=== PATIENT | male | born 1970 | race Caucasian/White ===

== ENCOUNTER 2024-07-20 08:48 | Inpatient (IN) | payer OTHER ==
--- NOTE | 2024-07-20 09:44 | ED ---
General Adult HPI - General Chief complaint: Abdominal Pain Stated complaint: Abd pain Time Seen by Provider: 07/20/24 09:03 Source: patient Mode of arrival: ambulatory Limitations: no limitations - History of Present Illness Initial comments: Dictation was produced using [employer] dictation software. please excuse any grammatical, word or spelling errors. Chief Complaint: 53-year-old male presents emergency department left lower quadrant abdominal pain History of Present Illness: Patient is 53-year-old male presents emergency department with left lower quadrant abdominal pain. Patient was seen to the urgent care was told to come to the ER. Patient has been having some left lower quadrant pain without any associated diarrhea, fever chills or night sweats. Was told to come to the ER for concerns of diverticulitis. The ROS documented in this emergency department record has been reviewed and confirmed by me. Those systems with pertinent positive or negative responses have been documented in the HPI. All other systems are other negative and/or noncontributory. - Related Data Previous Rx's Medication Instructions Recorded Docusate [Colace] 100 mg PO BID #30 capsule 03/12/14 Hydrocodone/Acetaminophen [Andale 1 each PO Q4HR PRN #40 tab 03/12/14 7.5-325] Allergies Allergy/AdvReac Type Severity Reaction Status Date / Time No Known Allergies Allergy Verified 07/20/24 09:01 Review of Systems ROS Statement: Those systems with pertinent positive or pertinent negative responses have been documented in the HPI. ROS Other: All systems not noted in ROS Statement are negative. Past Medical History Past Medical History: GERD/Reflux History of Any Multi-Drug Resistant Organisms: None Reported Past Surgical History: Cholecystectomy, Ear Surgery, Hernia Repair Additional Past Surgical History / Comment(s): PILONIDAL CYST EXC. Past Anesthesia/Blood Transfusion Reactions: No Reported Reaction Past Psychological History: No Psychological Hx Reported Smoking Status: Current every day smoker Past Alcohol Use History: Daily Past Drug Use History: Marijuana General Exam - General Exam Comments Initial Comments: PHYSICAL EXAM: General Impression: Alert and oriented x3, not in acute distress HEENT: Normocephalic atraumatic, extra-ocular movements intact, pupils equal and reactive to light bilaterally, mucous membranes moist. Cardiovascular: Heart regular rate and rhythm Chest: Able to complete full sentences, no retractions, no tachypnea Abdomen: abdomen soft, palpatory tenderness to the left lower quadrant non- distended, no organomegaly Musculoskeletal: Pulses present and equal in all extremities, no peripheral edema Motor: no focal deficits noted Neurological: CN II-XII grossly intact, no focal motor or sensory deficits noted Skin: Intact with no visualized rashes Psych: Normal affect and mood Limitations: no limitations Course Vital Signs 07/20/24 07/20/24 08:58 11:33 Temperature 99 F 98.1 F Pulse Rate 100 87 Respiratory 18 20 Rate Blood Pressure 134/92 131/58 O2 Sat by Pulse 99 98 Oximetry Medical Decision Making - Medical Decision Making Was pt. sent in by a medical professional or institution (, PA, CONTACT [employer] FLASHING P[employer]CHER, urgent care, hospital, or fpc...) When possible be specific @ -No Did you speak to anyone other than the patient for history (EMS, parent, family, police, friend...)? What history was obtained from this source @ -No Did you review nursing and triage notes (agree or disagree)? Why? @ -I reviewed and agree with nursing and triage notes Were old charts reviewed (outside hosp., previous admission, EMS record, old EKG, old radiological studies, urgent care reports/EKG's, fpc records)? Report findings @ -No old charts were reviewed Differential Diagnosis (chest pain, altered mental status, abdominal pain women, abdominal pain men, vaginal bleeding, musculoskeletal, weakness, fever, dyspnea, syncope, headache, dizziness, GI bleed, back pain, seizure, CVA, palpatations, mental health)? @ -Differential Abdominal Pain Men: Appendicitis, cholecystitis, diverticulosis, ischemic bowel, pancreatitis, hepatitis, UTI, gastroenteritis, AAA, incarcerated hernia, bowel obstruction, constipation, inflammatory bowel, hepatitis, peptic ulcer disease, splenic infarction, perforated viscus, testicular torsion, this is not meant to be an all-inclusive list EKG interpreted by me (3pts min.). @ -None done X-rays interpreted by me (1pt min.). @ -None done CT interpreted by me (1pt min.). @ -CT shows complicated diverticulitis U/S interpreted by me (1pt. min.). @ -None done What testing was considered but not performed or refused? (CT, X-rays, U/S, labs)? Why? @ -None What meds were considered but not given or refused? Why? @ -None Was smoking cessation discussed for >3mins.? @ -No Were there social determinants of health that impacted care today? How? (Homelessness, low income, unemployed, alcoholism, drug addiction, transportation, low edu. Level, literacy, decrease access to med. care, care home, rehab)? @ -No Was there de-escalation of care discussed even if they declined (Discuss DNR or withdrawal of care, Hospice)? DNR status @ -No What co-morbidities impacted this encounter? (DM, HTN, Smoking, COPD, CAD, Cancer, CVA, ARF, Chemo, Hep., AIDS, mental health diagnosis, sleep apnea, morbid obesity)? @ -None Was patient admitted / discharged? Hospital course, mention meds given and route, prescriptions, significant lab abnormalities, going to OR and other pertinent info. @ -53-year-old male with complicated diverticulitis. CT shows diverticulitis with perforation. Laboratory evaluation is unremarkable. Patient started antib iotics. Case discussed with Dr. Thompson for admission. Did you discuss the management of the patient with other professionals (professionals i.e. , PA, CONTACT [employer]ER, lab, RT, psych nurse, social services director, outpatient clerk, teacher, school resource officer, geriatric case manager)? Give summary @ -No Was critical care preformed (if so, how long)? @ -No Undiagnosed new problem with uncertain prognosis? @ -No Drug Therapy requiring intensive monitoring for toxicity (Heparin, Nitro, Insulin, Cardizem)? @ -No Were any procedures done? @ -No Diagnosis/symptom? Acute, or Chronic, or Acute on Chronic? Uncomplicated (without systemic symptoms) or Complicated (systemic symptoms)? @ -Complicated diverticulitis Side effects of treatment? @ -No Exacerbation, Progression, or Severe Exacerbation? @ -No Poses a threat to life or bodily function? How? (Chest pain, [place], [place], pneumonia, PE, COPD, DKA, ARF, appy, cholecystitis, CVA, Diverticulitis, Homicidal, Suicidal, threat to staff... and all critical care pts) @ -yes - Lab Data Result diagrams: 07/20/24 09:47 07/20/24 09:47 Lab Results 07/20/24 07/20/24 Range/Units 09:47 09:47 WBC 12.66 H (4.50-10.00) 10*3/uL RBC 4.93 (4.40-5.60) 10*6/uL Hgb 16.5 (13.0-17.0) g/dL Hct 45.0 (39.6-50.0) % MCV 91.3 (80.0-97.0) fL MCH 33.5 H (27.0-32.0) pg MCHC 36.7 (32.0-37.0) g/dL Plt Count 229 (140-440) 10*3/uL MPV 9.0 L (9.5-12.2) fL Immature Gran % (Auto) 0.4 % Neutrophils % 82.2 % Lymphocytes % 8.8 % Monocytes % 7.6 % Eosinophils % 0.6 % Basophils % 0.4 % Immature Gran # 0.05 H (0.00-0.04) 10*3/uL Neutrophils # 10.41 H (1.80-7.70) 10*3/uL Lymphocytes # 1.11 (0.90-5.00) 10*3/uL Monocytes # 0.96 (0.20-1.00) 10*3/uL Eosinophils # 0.08 (0.04-0.35) 10*3/uL Basophils # 0.05 (0.00-0.10) 10*3/uL Sodium 135 L (137-145) mmol/L Potassium 3.7 (3.5-5.1) mmol/L Chloride 100 (98-107) mmol/L Carbon Dioxide 26 (22-30) mmol/L Anion Gap 9 mmol/L BUN 15 (9-20) mg/dL Creatinine 0.69 (0.66-1.25) mg/dL Est GFR (CKD-EPI)AfAm >90 (>60 ml/min/1.73 sqM) Est GFR (CKD-EPI)NonAf >90 (>60 ml/min/1.73 sqM) Glucose 140 H (74-99) mg/dL Calcium 9.0 (8.4-10.2) mg/dL Total Bilirubin 1.0 (0.2-1.3) mg/dL AST 16 L (17-59) U/L ALT 20 (4-49) U/L Alkaline Phosphatase 74 (38-126) U/L Total Protein 6.8 (6.3-8.2) g/dL Albumin 4.0 (3.5-5.0) g/dL Lipase 43 (23-300) U/L Disposition Clinical Impression: Diverticulitis Disposition: ADMITTED IP TO THIS HOSP Condition: Fair Referrals: Bing Delatorre MD [Primary Care Provider] - 1-2 days Decision Time: 12:28
[2024-07-20 09:53] LABS: Basophils # (A) 0.05 10*3/uL (0.00-0.10); Basophils % (A) 0.4 %; Eosinophils # (A) 0.08 10*3/uL (0.04-0.35); Eosinophils % (A) 0.6 %; HGB 16.5 g/dL (13.0-17.0); Lymphocytes # (A) 1.11 10*3/uL (0.90-5.00); Lymphocytes % (A) 8.8 %; MCH 33.5 pg (27.0-32.0); MCHC 36.7 g/dL (32.0-37.0); MCV 91.3 fL (80.0-97.0); Monocytes # (A) 0.96 10*3/uL (0.20-1.00); Monocytes % (A) 7.6 %; Neutrophils # (A) 10.41 10*3/uL (1.80-7.70); Neutrophils % (A) 82.2 %; Platelet Count 229 10*3/uL (140-440); RBC 4.93 10*6/uL (4.40-5.60); RDW 11.8 % (11.5-14.5); WBC 12.66 10*3/uL (4.50-10.00)
[2024-07-20 10:04] LABS: ALT 20 U/L (4-49); AST 16 U/L (17-59); African American GFR (CKD) >90 (>60 ml/min/1.73 sqM); Alkaline Phosphatase 74 U/L (38-126); Anion Gap 9 mmol/L; Blood Urea Nitrogen 15 mg/dL (9-20); Carbon Dioxide 26 mmol/L (22-30); Chloride 100 mmol/L (98-107); Glucose 140 mg/dL (74-99); Lipase 43 U/L (23-300); Non-African American GFR(CKD) >90 (>60 ml/min/1.73 sqM); Potassium 3.7 mmol/L (3.5-5.1); Sodium 135 mmol/L (137-145); Total Protein 6.8 g/dL (6.3-8.2)
--- NOTE | 2024-07-20 11:33 | CT ---
EXAMINATION TYPE: CT abdomen pelvis w con DATE OF EXAM: 07/20/2024 10:58 AM COMPARISON: None. CLINICAL INDICATION: Male, 53 years old with history of llq abd pain; LLQ abdominal pain TECHNIQUE: Axial CT abdomen pelvis w con;Sagittal and coronal reformats were created on a separate w orkstation. Contrast used:100 ml mL of Isovue 300 with IV Contrast, (none if empty) Oral contrast used: without Oral Contrast (none if empty) CT DLP: 1611.2 mGycm, Automated exposure control for dose reduction was used. FINDINGS: LOWER CHEST: Unremarkable ABDOMEN LIVER: Liver enlarged at 19.7 cm. There may be mild fatty infiltration. GALLBLADDER AND BILE DUCTS: Gallbladder surgically absent. Portal venous system is patent. PANCREAS: Unremarkable. SPLEEN: Unremarkable. ADRENAL GLANDS: Unremarkable. KIDNEYS AND URETERS: Scattered bilateral renal cysts measuring up to 4.0 cm. There is a 3.3 cm interm ediate density, nonenhancing lesion mid left kidney suggesting a degree filter/compensated cyst. Symm etric uptake and excretion of contrast from both kidneys. PELVIS BLADDER: No evidence for wall thickening or mass given limitations of exam. REPRODUCTIVE: Unremarkable. ABDOMEN & PELVIS STOMACH AND BOWEL: Tiny hiatal hernia. No evidence of bowel obstruction. Generalized colonic divertic ulosis greatest along the proximal distal mid sigmoid colon. There is focal wall thickening with mode rate pericolonic inflammatory fat stranding and tracking edema at the lower descending colon with a s mall 1.1 cm focus of adjacent extraluminal air, axial image 50. No additional free air is identified. PERITONEUM/RETROPERITONEUM: No evidence of any additional pneumoperitoneum or free fluid. VASCULATURE: No evidence of aortic aneurysm. MUSCULOSKELETAL: Bilateral L5 pars defects. Mild degenerative disc disease throughout. LYMPH NODES: No gross evidence for lymphadenopathy. SOFT TISSUE/ABDOMINAL WALL: Unremarkable IMPRESSION: 1. Exam positive for acute diverticulitis along the lower descending colon with moderate inflammatio n. There is a focal microperforation with an extraluminal focus of air just adjacent measuring 1.1 cm . No additional free air is seen. 2. Incidental bilateral L5 pars defects. [facility], Workstation: [email or web address], 07/20/2024 11:30 AM
[2024-07-20] MEDS ORDERED: NALOXONE 0.4 MG/ML 1 ML VIAL IV PRN (12:26)
[2024-07-20] MEDS ORDERED: ACETAMINOPHEN TAB 325 MG TAB PO PRN (12:26)
[2024-07-20] MEDS: PIPERACILLIN-TAZOBACTAM 3.375 GM in SODIUM CHLORIDE 0.9% 100 ML IVPB SCH (12:33)
[2024-07-20] MEDS: SODIUM CHLORIDE 0.9% 1,000 ML IV SCH (12:38)
[2024-07-20] MEDS ORDERED: HYDROmorphone 2 MG/ML 1 ML SYRINGE IVP PRN (16:49)
[2024-07-20] MEDS ORDERED: ONDANSETRON 4 MG/2 ML VIAL IVP PRN (16:50)
--- NOTE | 2024-07-20 16:51 | P.GSHP ---
History of Present Illness H&P Date: 07/20/24 CHIEF COMPLAINT: Abdominal pain HISTORY OF PRESENT ILLNESS: This is a 53-year-old male who presented to the ER with complaints of left lower quadrant abdominal pain for the last 4 days. Patient reports he noticed some swelling on the left side of the abdomen. He had a CT scan abdomen and pelvis completed that reported acute diverticulitis along the lower descending colon with moderate inflammation. There is a focal microperforation with extraluminal focus of air just adjacent measuring 1.1 cm. No additional free air is seen. Patient started on antibiotics. PAST MEDICAL HISTORY: GERD PAST SURGICAL HISTORY: Cholecystectomy, hernia repair, pilonidal cyst excision MEDICATIONS: See below ALLERGIES: See below SOCIAL HISTORY: No illicit drug use. Daily alcohol use. Marijuana use, nicotine dependence REVIEW OF SYSTEMS: CONSTITUTIONAL: Denies fever or chills. HEENT: Denies blurred vision, vision changes, or eye pain. Denies hemoptysis CARDIOVASCULAR: Denies chest pain or pressure. RESPIRATORY: No shortness of breath. GASTROINTESTINAL: See HPI for pertinent findings HEMATOLOGIC: Denies bleeding disorders. GENITOURINARY: Denies any blood in urine or increased urinary frequency. SKIN: Denies pruitis. Denies rash. PHYSICAL EXAM: VITAL SIGNS: Reviewed GENERAL: Well-developed in no acute distress. HEENT: No sclera icterus. Extraocular movements grossly intact. Moist buccal mucosa. Head is atraumatic, normocephalic. No nasal drainage. ABDOMEN: Soft. Nondistended. Mild tenderness palpation left lower quadrant. No rebound or guarding noted. NEUROLOGIC: Alert and oriented. Cranial nerves II through XII grossly intact. LABORATORY DATA: WBC is 12.6 Hgb 16.5 platelets 229 Sodium is 135 potassium 3.7 creatinine 0.69 IMAGING: CT scan abdomen pelvis reports acute diverticulitis along the lower descending colon with moderate inflammation. There is focal microperforation with an external focus of air just adjacent measuring 1.1 cm. No additional free air is seen. ASSESSMENT: 1. Acute diverticulitis along the lower descending colon with microperforation PLAN: - Keep patient n.p.o. - Continue IV antibiotics - Continue IV fluids - Continue pain management - Continue to monitor closely Physician [employer] note has been reviewed by physician. Signing provider agrees with the documented findings, assessment, and plan of care. Past Medical History Past Medical History: GERD/Reflux History of Any Multi-Drug Resistant Organisms: None Reported Past Surgical History: Cholecystectomy, Ear Surgery, Hernia Repair Additional Past Surgical History / Comment(s): PILONIDAL CYST EXC. Past Anesthesia/Blood Transfusion Reactions: No Reported Reaction Past Psychological History: No Psychological Hx Reported Smoking Status: Current every day smoker Past Alcohol Use History: Daily Past Drug Use History: Marijuana Medications and Allergies Home Medications Medication Instructions Recorded Confirmed Type Lisinopril-Hctz 20-25 mg 1 tab PO DAILY 07/20/24 07/20/24 History [Zestoretic -] Allergies Allergy/AdvReac Type Severity Reaction Status Date / Time No Known Allergies Allergy Verified 07/20/24 12:51 Surgical - Exam Vital Signs Temp Pulse Resp BP Pulse Ox 99 F 100 18 134/92 99 07/20/24 08:58 07/20/24 08:58 07/20/24 08:58 07/20/24 08:58 07/20/24 08:58 Results - Labs 07/20/24 09:47 07/20/24 09:47 Abnormal Lab Results - Last 24 Hours (Table) 07/20/24 07/20/24 Range/Units 09:47 09:47 WBC 12.66 H (4.50-10.00) 10*3/uL MCH 33.5 H (27.0-32.0) pg MPV 9.0 L (9.5-12.2) fL Immature Gran # 0.05 H (0.00-0.04) 10*3/uL Neutrophils # 10.41 H (1.80-7.70) 10*3/uL Sodium 135 L (137-145) mmol/L Glucose 140 H (74-99) mg/dL AST 16 L (17-59) U/L Diabetes panel 07/20/24 Range/Units 09:47 Sodium 135 L (137-145) mmol/L Potassium 3.7 (3.5-5.1) mmol/L Chloride 100 (98-107) mmol/L Carbon Dioxide 26 (22-30) mmol/L BUN 15 (9-20) mg/dL Creatinine 0.69 (0.66-1.25) mg/dL Glucose 140 H (74-99) mg/dL Calcium 9.0 (8.4-10.2) mg/dL AST 16 L (17-59) U/L ALT 20 (4-49) U/L Alkaline Phosphatase 74 (38-126) U/L Total Protein 6.8 (6.3-8.2) g/dL Albumin 4.0 (3.5-5.0) g/dL Calcium panel 07/20/24 Range/Units 09:47 Calcium 9.0 (8.4-10.2) mg/dL Albumin 4.0 (3.5-5.0) g/dL Pituitary panel 07/20/24 Range/Units 09:47 Sodium 135 L (137-145) mmol/L Potassium 3.7 (3.5-5.1) mmol/L Chloride 100 (98-107) mmol/L Carbon Dioxide 26 (22-30) mmol/L BUN 15 (9-20) mg/dL Creatinine 0.69 (0.66-1.25) mg/dL Glucose 140 H (74-99) mg/dL Calcium 9.0 (8.4-10.2) mg/dL Adrenal panel 07/20/24 Range/Units 09:47 Sodium 135 L (137-145) mmol/L Potassium 3.7 (3.5-5.1) mmol/L Chloride 100 (98-107) mmol/L Carbon Dioxide 26 (22-30) mmol/L BUN 15 (9-20) mg/dL Creatinine 0.69 (0.66-1.25) mg/dL Glucose 140 H (74-99) mg/dL Calcium 9.0 (8.4-10.2) mg/dL Total Bilirubin 1.0 (0.2-1.3) mg/dL AST 16 L (17-59) U/L ALT 20 (4-49) U/L Alkaline Phosphatase 74 (38-126) U/L Total Protein 6.8 (6.3-8.2) g/dL Albumin 4.0 (3.5-5.0) g/dL
[2024-07-20] MEDS: HEPARIN SODIUM,PORCINE 5,000 UNIT/ML 1 ML VIAL SQ SCH (21:16)
[2024-07-21 04:24] LABS: Basophils # (A) 0.04 10*3/uL (0.00-0.10); Basophils % (A) 0.5 %; Eosinophils # (A) 0.12 10*3/uL (0.04-0.35); Eosinophils % (A) 1.5 %; HCT 43.2 % (39.6-50.0); Lymphocytes # (A) 1.47 10*3/uL (0.90-5.00); Lymphocytes % (A) 18.9 %; MCH 32.6 pg (27.0-32.0); MCHC 34.7 g/dL (32.0-37.0); MCV 93.9 fL (80.0-97.0); Monocytes # (A) 0.93 10*3/uL (0.20-1.00); Monocytes % (A) 11.9 %; Neutrophils # (A) 5.19 10*3/uL (1.80-7.70); Neutrophils % (A) 66.7 %; Platelet Count 246 10*3/uL (140-440); RDW 11.9 % (11.5-14.5); WBC 7.79 10*3/uL (4.50-10.00)
[2024-07-21 04:46] LABS: African American GFR (CKD) >90 (>60 ml/min/1.73 sqM); Anion Gap 11 mmol/L; Blood Urea Nitrogen 16 mg/dL (9-20); Carbon Dioxide 26 mmol/L (22-30); Chloride 99 mmol/L (98-107); Glucose 112 mg/dL (74-99); Non-African American GFR(CKD) >90 (>60 ml/min/1.73 sqM); Potassium 3.7 mmol/L (3.5-5.1); Sodium 136 mmol/L (137-145)
--- NOTE | 2024-07-21 12:30 | P.PN ---
Subjective Progress Note Date: 07/21/24 SURGICAL PROGRESS NOTE CHIEF COMPLAINT: Diverticulitis with microperforation HISTORY OF PRESENT ILLNESS: Patient reports his abdominal pain is improving. He has mild discomfort in the left lower quadrant. He has not required pain medication this morning. Denies any nausea or vomiting. Afebrile. White count has normalized from 12.6-7.79 PHYSICAL EXAM: VITAL SIGNS: Reviewed. GENERAL: Well-developed in no acute distress. ABDOMEN: Soft. Nondistended. Mild tenderness left lower quadrant with p alpation NEUROLOGIC: Alert and oriented. Cranial nerves II through XII grossly intact. ASSESSMENT: 1. Acute diverticulitis along the lower descending colon with microperforation PLAN: - Advance diet to clear liquids. Okay for coffee - Continue pain management - Continue antibiotics - Continue IV fluids - Repeat labs in a.m. -DVT prophylaxis subcu heparin Physician [employer] Helper note has been reviewed by physician. Signing provider agrees with the documented findings, assessment, and plan of care. Objective - Vital Signs Vital signs: Vital Signs Temp 98.1 F 07/21/24 07:32 Pulse 74 07/21/24 07:32 Resp 16 07/21/24 07:32 BP 116/73 07/21/24 07:32 Pulse Ox 96 07/21/24 07:32 FiO2 Intake & Output 07/20/24 07/21/24 07/21/24 18:59 06:59 18:59 Weight 99.79 kg 99.79 kg Other: Voiding Method Toilet # Voids 2 - Labs CBC & Chem 7: 07/21/24 03:48 07/21/24 03:48 Labs: Abnormal Lab Results - Last 24 Hours (Table) 07/21/24 07/21/24 Range/Units 03:48 03:48 MCH 32.6 H (27.0-32.0) pg MPV 9.0 L (9.5-12.2) fL Sodium 136 L (137-145) mmol/L Glucose 112 H (74-99) mg/dL
[2024-07-21] MEDS ORDERED: LORazepam 1 MG TAB PO PRN ×3 (12:31)
[2024-07-21] MEDS ORDERED: LORazepam 0.5 MG TAB PO PRN (12:31)
--- NOTE | 2024-07-21 12:44 | P.CONS ---
History of Present Illness - Reason for Consult Consult date: 07/21/24 - Chief Complaint complicated diverticulitis - History of Present Illness Meek Francisco is a 53-year-old male patient of Dr. Delatorre. Patient has a past medical history of GERD, Cholesystectomy , ear surgery and hernia repair and everyday smoker. Patient reports that symptoms started approximately 2 days ago and included nausea vomiting and sharp abdominal pain. Abdominal CT completed showing positive for acute diverticulitis along the lower descending colon with moderate inflammation. There is a focal microperforation with the exteraluminal focus of air just adjacent measuring 1.1 cm. Lab work completed showing white blood cell 12.66, hemoglobin 16.5, creatinine 0.69, bun 15, lipase 43, alkaline phosphatase 74. Vital signs include temp 98.1, heart 74, respiratory rate 16, blood pressure 116/73 with pulse ox of 96% on room air. At this time patient will be admitted patient started on IV Zosyn. Patient made n.p.o. and surgical services consulted Review of Systems Please refer to HPI otherwise unremarkable Past Medical History Past Medical History: GERD/Reflux, Hypertension History of Any Multi-Drug Resistant Organisms: None Reported Past Surgical History: Cholecystectomy, Ear Surgery, Hernia Repair Additional Past Surgical History / Comment(s): PILONIDAL CYST EXC. Past Anesthesia/Blood Transfusion Reactions: No Reported Reaction Past Psychological History: No Psychological Hx Reported Smoking Status: Current every day smoker Past Alcohol Use History: None Reported Additional Past Alcohol Use History / Comment(s): SMOKES 1 PPD Past Drug Use History: Marijuana Medications and Allergies Home Medications Medication Instructions Recorded Confirmed Type Lisinopril-Hctz 20-25 mg 1 tab PO DAILY 07/20/24 07/20/24 History [Zestoretic -] Allergies Allergy/AdvReac Type Severity Reaction Status Date / Time No Known Allergies Allergy Verified 07/20/24 12:51 Physical Exam Vitals: Vital Signs Temp Pulse Pulse Resp BP BP Pulse Ox 07/21/24 07:32 98.1 F 74 16 116/73 96 07/21/24 00:32 98.1 F 69 16 121/73 98 07/20/24 20:50 98.2 F 81 16 131/85 98 07/20/24 20:16 98.8 F 83 18 128/85 96 07/20/24 19:20 98.1 F 80 18 119/81 99 04/28/25 15:36 78 18 113/83 98 07/20/24 12:43 98.7 F 89 18 120/81 99 Intake and Output 07/20/24 07/21/24 07/21/24 22:59 06:59 14:59 Other: Voiding Method Toilet # Voids 2 Weight 99.79 kg Head normocephalic Neck supple Lungs clear to auscultation bilaterally no wheezing or crackles Heart regular rate and rhythm S1-S2, no rub or gallop Abdomen is soft rounded and tender Extremities no edema Neuro alert and orientated to 3 Results CBC & Chem 7: 07/21/24 03:48 07/21/24 03:48 Labs: Abnormal Lab Results - Last 24 Hours (Table) 07/21/24 07/21/24 Range/Units 03:48 03:48 MCH 32.6 H (27.0-32.0) pg MPV 9.0 L (9.5-12.2) fL Sodium 136 L (137-145) mmol/L Glucose 112 H (74-99) mg/dL Assessment and Plan Assessment: 1. Diverticulitis with microperforation. 2. History of GERD 3. History of essential hypertension 4. History of cholecystectomy 5. Current everyday smoker DVT prophylaxis SCDS, GI prophylaxis Protonix patient started on IV antibiotics surgical consult placed repeat labs ordered Time with Patient: Greater than 30 (Greater than 60% of the total time spent in counseling and coordination of care)
[2024-07-21] MEDS: THIAMINE 100 MG/ML 2 ML VIAL IM STA (14:01)
[2024-07-21] MEDS ORDERED: HYDROmorphone 1 MG/ML 1 ML SYRINGE IVP PRN (20:21)
[2024-07-22 08:26] LABS: Basophils # (A) 0.06 X 10*3/uL (0.00-0.10); Basophils % (A) 0.9 %; Eosinophils # (A) 0.15 X 10*3/uL (0.04-0.35); Eosinophils % (A) 2.3 %; HCT 42.7 % (39.6-50.0); HGB 14.5 g/dL (13.0-17.0); Lymphocytes # (A) 1.64 X 10*3/uL (0.90-5.00); Lymphocytes % (A) 24.8 %; MCH 32.8 pg (27.0-32.0); MCV 96.6 FL (80.0-97.0); Mean Platelet Volume 9.3 FL (9.5-12.2); Monocytes # (A) 0.73 X 10*3/uL (0.20-1.00); NRBC Per 100 WBC 0 X 10*3/uL (0.00-0.01); Neutrophils % (A) 60.4 %; Platelet Count 274 X 10*3/uL (140-440); RBC 4.42 X 10*6/uL (4.40-5.60); RDW 11.8 % (11.5-14.5); WBC 6.62 X 10*3/uL (4.50-10.00)
[2024-07-22 08:31] VITALS: BP 144/83; PULSE 61; RESP 17; TEMP 98.4
--- NOTE | 2024-07-22 08:46 | P.CONS ---
History of Present Illness - Reason for Consult Consult date: 07/21/24 Acute diverticulitis With perforation Requesting physician: Deondre Suarez - Chief Complaint Abdominal pain x few days - History of Present Illness Patient is a 53-year-old male with a past medical history significant for reflux hypertension presenting to the hospital for evaluation of abdominal pain patient symptom apparently has been going on for the last few days got worse earlier presentation to the hospital with the patient was initially seen in the urgent care subsequent advised to go to the hospital patient was complaining of pain to be sharp moderate to severe intensity without any radiation with associated nausea but no vomiting did have some constipation and the patient did have a fever on presentation to the hospital patient did have low-grade fever of 99 F patient was not tachycardic hypotensive or hypoxic he did have white count of 12.66 creatinine 0.69 patient did have abdominal pelvis CT acute diverticulitis with moderate inflammation with focal microperforation within extraluminal focus of air just adjacent mildly 1.1 cm did not mention any developing abscess patient has been started on Zosyn infectious disease was consulted today for further management of antibiotic therapy Review of Systems Positive point and negatives has been mentioned in the HPI, complete review of systems was performed and all other systems are negative Past Medical History Past Medical History: GERD/Reflux, Hypertension History of Any Multi-Drug Resistant Organisms: None Reported Past Surgical History: Cholecystectomy, Ear Surgery, Hernia Repair Additional Past Surgical History / Comment(s): PILONIDAL CYST EXC. Past Anesthesia/Blood Transfusion Reactions: No Reported Reaction Past Psychological History: No Psychological Hx Reported Smoking Status: Current every day smoker Past Alcohol Use History: None Reported Additional Past Alcohol Use History / Comment(s): SMOKES 1 PPD Past Drug Use History: Marijuana Medications and Allergies Home Medications Medication Instructions Recorded Confirmed Type Lisinopril-Hctz 20-25 mg 1 tab PO DAILY 07/20/24 07/20/24 History [Zestoretic 20-25] Allergies Allergy/AdvReac Type Severity Reaction Status Date / Time No Known Allergies Allergy Verified 07/20/24 12:51 Physical Exam Vitals: Vital Signs Temp Pulse Pulse Resp BP BP Pulse Ox 07/21/24 07:32 98.1 F 74 16 116/73 96 07/21/24 00:32 98.1 F 69 16 121/73 98 07/20/24 20:50 98.2 F 81 16 131/85 98 07/20/24 20:16 98.8 F 83 18 128/85 96 07/20/24 19:20 98.1 F 80 18 119/81 99 07/20/24 15:36 78 18 113/83 98 Intake and Output 07/20/24 07/21/24 07/21/24 22:59 06:59 14:59 Other: Voiding Method Toilet # Voids 2 Weight 99.79 kg GENERAL DESCRIPTION: Middle-age male up in the chair, no distress. No tachypnea or accessory muscle of respiration use. HEENT: Shows Pallor , no scleral icterus. Oral mucous membrane is dry. NECK: Trachea central, no thyromegaly. LUNGS: Unlabored breathing. Clear to auscultation anteriorly. No wheeze or crackle. HEART: S1, S2, regular rate and rhythm. No loud murmur ABDOMEN: Soft, no tenderness , EXTREMITIES: No edema of feet. SKIN: No rash, no masses palpable. NEUROLOGICAL: The patient is awake, alert, oriented x3, mood and affect normal. Results CBC & Chem 7: 07/22/24 03:16 07/21/24 03:48 Labs: Abnormal Lab Results - Last 24 Hours (Table) 07/21/24 07/21/24 Range/Units 03:48 03:48 MCH 32.6 H (27.0-32.0) pg MPV 9.0 L (9.5-12.2) fL Sodium 136 L (137-145) mmol/L Glucose 112 H (74-99) mg/dL Assessment and Plan (1) Diverticulitis of colon with perforation Current Visit: Yes Status: Acute Code(s): K57.20 - DVTRCLI OF LG INT W PERFORATION AND ABSCESS W/O BLEEDING SNOMED Code(s): 71679303 (2) Leukocytosis Current Visit: Yes Status: Acute Code(s): D72.829 - ELEVATED WHITE BLOOD CELL COUNT, UNSPECIFIED SNOMED Code(s): 391652171 Plan: 1patient presenting to the hospital with abdominal pain. Patient has been diagnosed with acute diverticulitis with microperforation but did not mention any abscess likely pathogen need to cover will be enteric gram-negative both aer obes and anaerobes. 2patient with leukocytosis more likely due to diverticulitis with perforation. 3patient advised Zosyn 3.375 g every 8 hours along with bowel rest for another 24 to 48 hours before transitioning him to oral antibiotics as the patient has been insisting on going home today We will follow on clinical condition and cultures to further adjust medication if needed Thank you for this consultation we will follow the patient along with you Dictation was produced using [employer] dictation software. please excuse any grammatical, word or spelling errors. Time with Patient: Greater than 30
[2024-07-22 09:10] LABS: ALT 17 U/L (10-49); AST 14 U/L (14-35); Albumin 3.4 g/dL (3.8-4.9); Albumin/Globulin Ratio 1.42 Ratio (1.60-3.17); Alkaline Phosphatase 57 U/L (41-126); BUN/Creat Ratio 17.56 Ratio (12.00-20.00); Blood Urea Nitrogen 15.8 mg/dL (9.0-27.0); Calcium 8.6 mg/dL (8.7-10.3); Carbon Dioxide 22.4 mmol/L (21.6-31.8); Chloride 106 mmol/L (96-109); Globulin 2.4 g/dL (1.6-3.3); Glucose 113 mg/dL (70-110); Potassium 4.2 mmol/L (3.5-5.5); Sodium 141 mmol/L (135-145); Total Bilirubin 0.3 mg/dL (0.3-1.2); Total Protein 5.8 g/dL (6.2-8.2)
[2024-07-22] MEDS: THIAMINE 100 MG TAB PO SCH (10:23)
[2024-07-22] MEDS: LISINOPRIL-HCTZ 20-25 MG 1 EACH TAB PO SCH (10:23)
[2024-07-22] MEDS: MULTIVITAMINS, THERA 1 EACH TAB PO SCH (10:23)
--- NOTE | 2024-07-22 10:44 | P.DS ---
Providers Date of admission: 07/20/24 12:27 Expected date of discharge: 07/22/24 Attending physician: Man Thompson Consults: 07/20/24 16:51 Consult Physician Routine Consulting Provider: Deondre Suarez Consult Reason/Comments: medical management Do you want consulting provider notified?: Yes 07/21/24 13:45 Consult Physician Routine Consulting Provider: Dayan Slater Consult Reason/Comments: diverticulitis with perf Do you want consulting provider notified?: Yes Primary care physician: Bing Delatorre Hospital Course: Discharge diagnosis 1. Acute diverticulitis along the lower descending colon with microperforation Hospital course This is a 53-year-old male who presented with complaints of left lower quadrant abdominal pain. He had a CT scan abdomen and pelvis completed that reported acute diverticulitis along the lower descending colon with moderate inflammation. There is a focal microperforation with extraluminal focus of air just adjacent measuring 1.1 cm. No additional free air is seen. Patient was started on antibiotics. His white count has normalized. His pain is improved. He is tolerating liquid diet. He is afebrile. Patient has been up and ambulating. He is stable for discharge. Please refer to chart for any further details. Physician Jackscrew Man note has been reviewed by physician. Signing provider agrees with the documented findings, assessment, and plan of care. Patient Condition at Discharge: Stable Plan - Discharge Summary Discharge Rx Participant: No New Discharge Prescriptions: New Ibuprofen [Motrin] 600 mg PO Q8HR PRN #30 tab PRN Reason: Pain metroNIDAZOLE [Flagyl] 500 mg PO TID 10 Days #30 tab Levofloxacin [Levaquin] 500 mg PO DAILY 10 Days #10 tab Acetaminophen Tab [Tylenol Tab] 650 mg PO Q4H PRN #30 tablet PRN Reason: Pain Continue Lisinopril-Hctz 20-25 mg [Zestoretic 20-25] 1 tab PO DAILY Discharge Medication List Lisinopril-Hctz 20-25 mg [Zestoretic 20-25] 1 tab PO DAILY 07/20/24 [History] Acetaminophen Tab [Tylenol Tab] 650 mg PO Q4H PRN #30 tablet 07/22/24 [Rx] Ibuprofen [Motrin] 600 mg PO Q8HR PRN #30 tab 07/22/24 [Rx] Levofloxacin [Levaquin] 500 mg PO DAILY 10 Days #10 tab 07/22/24 [Rx] metroNIDAZOLE [Flagyl] 500 mg PO TID 10 Days #30 tab 07/22/24 [Rx] Follow up Appointment(s)/Referral(s): Bing Delatorre MD [Primary Care Provider] - 1-2 days Man Thompson MD [STAFF PHYSICIAN] - 2 Weeks Activity/Diet/Wound Care/Special Instructions: Continue a full liquid diet over the next couple of days and advance diet as tolerated Discharge Disposition: HOME SELF-CARE
--- NOTE | 2024-07-22 11:56 | P.PN ---
Subjective Progress Note Date: 07/22/24 Meek Franicsco is a 53-year-old male patient of Dr. Delatorre. Patient has a past medical history of GERD, Cholesystectomy , ear surgery and hernia repair and everyday smoker. Patient reports that symptoms started approximately 2 days ago and included nausea vomiting and sharp abdominal pain. Abdominal CT completed showing positive for acute diverticulitis along the lower descending colon with moderate inflammation. There is a focal microperforation with the exteraluminal focus of air just adjacent measuring 1.1 cm. Lab work completed showing white blood cell 12.66, hemoglobin 16.5, creatinine 0.69, bun 15, lipase 43, alkaline phosphatase 74. Vital signs include temp 98.1, heart 74, respiratory rate 16, blood pressure 116/73 with pulse ox of 96% on room air. At this time patient will be admitted patient started on IV Zosyn. Patient made n.p.o. and surgical services consulted On 08/21/2024 patient was seen and examined on the medical floor he is alert and oriented x 3 in no apparent distress he denies any complaints at this time there is no fever or chills no headache or dizziness no chest pain no shortness of breath no cough no nausea or vomiting no abdominal pain no diarrhea no urinary symptoms. White blood count is down to 6.62 patient is insisting on going home today he was evaluated by infectious disease and recommendation is for 10 days of oral Levaquin and Flagyl patient will be discharged to home today follow-up with primary care physician within 1 week follow-up with general surgery in 1 to 2 weeks Objective - Vital Signs Vital signs: Vital Signs Temp 98.4 F 07/22/24 07:13 Pulse 61 07/22/24 07:13 Resp 17 07/22/24 07:13 BP 144/83 07/22/24 07:13 Pulse Ox 99 07/22/24 07:13 FiO2 Intake & Output 07/21/24 07/22/24 07/22/24 18:59 06:59 18:59 Intake Total 180 Balance 180 Intake: Oral 180 Other: Voiding Method Toilet # Voids 3 3 - Exam In general patient is alert and oriented x 3 in no distress HEENT head normocephalic and atraumatic Neck is supple no JVD no goiter no lymphadenopathy no carotid bruit Chest examination is clear to auscultation no crackles no wheezing Cardiac exam reveals regular heart sounds S1 and S2 no gallops no murmurs Abdomen is soft nontender no organomegaly with normal bowel sounds Extremity exam reveals no edema no cyanosis or clubbing Neurological examination reveals no gross focal deficits - Labs CBC & Chem 7: 07/22/24 03:16 07/22/24 03:16 Labs: Abnormal Lab Results - Last 24 Hours (Table) 07/22/24 07/22/24 Range/Units 03:16 03:16 MCH 32.8 H (27.0-32.0) pg MPV 9.3 L (9.5-12.2) FL Anion Gap 12.60 H (4.00-12.00) mmol/L Glucose 113 H (70-110) mg/dL Calcium 8.6 L (8.7-10.3) mg/dL Total Protein 5.8 L (6.2-8.2) g/dL Albumin 3.4 L (3.8-4.9) g/dL Albumin/Globulin Ratio 1.42 L (1.60-3.17) Ratio Assessment and Plan Assessment: 1. Diverticulitis with microperforation. 2. History of GERD 3. History of essential hypertension 4. History of cholecystectomy 5. Current everyday smoker DVT prophylaxis SCDS, GI prophylaxis Protonix patient started on IV antibiotics surgical consult placed repeat labs ordered
--- NOTE | 2024-07-22 16:43 | P.PN ---
Subjective Progress Note Date: 07/22/24 Principal diagnosis: Reason for follow-up is acute diverticulitis with microperforation Patient is a 53-year-old male with a past medical history significant for reflux hypertension presenting to the hospital for evaluation of abdominal pain patient be diagnosed with a acute diverticulitis with microperforation prompting this consultation. On today's evaluation that is 07/22/2024,the patient remains to be afebrile, patient is on room air not requiring supplemental oxygen and denies any shortness of breath no chest pain or cough.Patient denies having any nausea or vomiting, did have resolution of his abdominal pain and wants to go home patient has already been discharged by the surgical team this morning and they have sent a prescription for oral Levaquin and Flagyl. Patient white count 6.62, creatinine 0.9 Objective - Vital Signs Vital signs: Vital Signs Temp 98.4 F 07/22/24 07:13 Pulse 61 07/22/24 08:00 Resp 17 07/22/24 08:00 BP 144/83 07/22/24 07:13 Pulse Ox 99 07/22/24 07:13 FiO2 Intake & Output 07/21/24 07/22/24 07/22/24 18:59 06:59 18:59 Intake Total 180 Balance 180 Intake: Oral 180 Other: Voiding Method Toilet Toilet # Voids 3 3 - Exam GENERAL DESCRIPTION: Middle-age male up in the chair in no distress RESPIRATORY SYSTEM: Unlabored breathing , decreased breath sounds at bases HEART: S1 S2 regular rate and rhythm , ABDOMEN: Soft , no tenderness EXTREMITIES: No edema feet - Labs CBC & Chem 7: 07/22/24 03:16 07/22/24 03:16 Labs: Abnormal Lab Results - Last 24 Hours (Table) 07/22/24 07/22/24 Range/Units 03:16 03:16 MCH 32.8 H (27.0-32.0) pg MPV 9.3 L (9.5-12.2) FL Anion Gap 12.60 H (4.00-12.00) mmol/L Glucose 113 H (70-110) mg/dL Calcium 8.6 L (8.7-10.3) mg/dL Total Protein 5.8 L (6.2-8.2) g/dL Albumin 3.4 L (3.8-4.9) g/dL Albumin/Globulin Ratio 1.42 L (1.60-3.17) Ratio Assessment and Plan (1) Diverticulitis of colon with perforation Status: Acute Code(s): K57.20 - DVTRCLI OF LG INT W PERFORATION AND ABSCESS W/O BLEEDING SNOMED Code(s): 40779138 (2) Leukocytosis Status: Acute Code(s): D72.829 - ELEVATED WHITE BLOOD CELL COUNT, UNSPECIFIED SNOMED Code(s): 751027289 Plan: 1patient presenting to the hospital with abdominal pain. Patient has been diagnosed with acute diverticulitis with microperforation but did not mention any abscess likely pathogen need to cover will be enteric gram-negative both aerobes and anaerobes. 2patient with leukocytosis more likely due to diverticulitis with perforation. 3patient has been advised to stay in the hospital for another 24 hours for IV antibiotic therapy patient refused surgical team has already discharge the patient on oral Levaquin and Flagyl patient has been advised soft diet and if any worsening abdominal pain nausea vomiting not to take it easy and come back to the hospital right away Dictation was produced using [employer] dictation software. please excuse any grammatical, word or spelling errors. Time with Patient: Less than 30
== END 2024-07-22 12:56 | disposition home or self-care (01) | DRG 392 ==
LOC: EC 08:48 → 4SSUR 12:27
PROVIDERS: ADMIT Surgery; ATTEND Surgery
DX: K57.20 Diverticulitis of large intestine with perforation and abscess without bleeding (principal); F17.210 Nicotine dependence, cigarettes, uncomplicated; I10 Essential (primary) hypertension; Z79.899 Other long term (current) drug therapy
CPT/HCPCS: 36415; 74177; 80048; 80053; 83690; 85025; 96365; 96366; 99285

== ENCOUNTER 2024-08-07 09:58 | Emergency (ER) | payer OTHER ==
[2024-08-07 10:14] VITALS: TEMP 98.3
--- NOTE | 2024-08-07 10:35 | ED ---
General Adult HPI - General Chief complaint: Dizziness Stated complaint: dizzy Time Seen by Provider: 08/07/24 10:15 Source: patient, RN notes reviewed Mode of arrival: ambulatory Limitations: no limitations - History of Present Illness Initial comments: 53-year-old male presents to the emergency department for lightheadedness. Patient states that he has had episodes over the past 3 days. He notes that today he had an episode lasting around 30 minutes. He states that during this time he felt lightheaded but he did not have to sit down. He does report that he recently had diverticulitis and just finished his antibiotics. He states that the pain has resolved. He is not having any changes in his bowel movements. He does note that he started advancing his diet. He denies any fever, chills, nausea, vomiting. Denies any chest pain, shortness of breath. - Related Data Home Medications Medication Instructions Recorded Confirmed Lisinopril-Hctz 20-25 mg 1 tab PO DAILY 07/20/24 07/20/24 [Zestoretic 20-25] Previous Rx's Medication Instructions Recorded Acetaminophen Tab [Tylenol Tab] 650 mg PO Q4H PRN #30 tablet 07/22/24 Ibuprofen [Motrin] 600 mg PO Q8HR PRN #30 tab 07/22/24 Levofloxacin [Levaquin] 500 mg PO DAILY 10 Days #10 tab 07/22/24 metroNIDAZOLE [Flagyl] 500 mg PO TID 10 Days #30 tab 07/22/24 Allergies Allergy/AdvReac Type Severity Reaction Status Date / Time No Known Allergies Allergy Verified 08/07/24 10:14 Review of Systems ROS Statement: Those systems with pertinent positive or pertinent negative responses have been documented in the HPI. ROS Other: All systems not noted in ROS Statement are negative. Past Medical History Past Medical History: GERD/Reflux, Hypertension History of Any Multi-Drug Resistant Organisms: None Reported Past Surgical History: Cholecystectomy, Ear Surgery, Hernia Repair Additional Past Surgical History / Comment(s): PILONIDAL CYST EXC. Past Anesthesia/Blood Transfusion Reactions: No Reported Reaction Past Psychological History: No Psychological Hx Reported Smoking Status: Current every day smoker Past Alcohol Use History: None Reported Past Drug Use History: Marijuana General Exam Limitations: no limitations General appearance: alert, in no apparent distress Head exam: Present: atraumatic, normocephalic, normal inspection Eye exam: Present: normal appearance, PERRL, EOMI. Absent: scleral icterus, conjunctival injection, periorbital swelling ENT exam: Present: normal exam, mucous membranes moist Respiratory exam: Present: wheezes. Absent: respiratory distress, rales, rhonchi, stridor Cardiovascular Exam: Present: regular rate, normal rhythm, normal heart sounds. Absent: systolic murmur, diastolic murmur, rubs, gallop, clicks GI/Abdominal exam: Present: soft, normal bowel sounds. Absent: distended, tenderness, guarding, rebound, rigid Extremities exam: Present: normal inspection, full ROM, normal capillary refill. Absent: tenderness, pedal edema, joint swelling, calf tenderness Neurological exam: Present: alert, oriented X3 Psychiatric exam: Present: normal affect, normal mood Skin exam: Present: warm, dry, intact, normal color. Absent: rash Course Vital Signs 08/07/24 08/07/24 08/07/24 10:11 11:04 11:05 Temperature 98.3 F Pulse Rate 87 Pulse Rate [ 76 73 Pulse Oximetery ] Respiratory 17 16 16 Rate Blood Pressure 123/77 Blood Pressure 122/80 [Left Arm Sitting] Blood Pressure [Left Arm Standing] Blood Pressure 106/72 [Left Arm Supine] O2 Sat by Pulse 98 98 97 Oximetry 08/07/24 08/07/24 11:06 12:09 Temperature Pulse Rate Pulse Rate [ 72 Pulse Oximetery ] Respiratory 18 16 Rate Blood Pressure Blood Pressure [Left Arm Sitting] Blood Pressure 123/82 [Left Arm Standing] Blood Pressure [Left Arm Supine] O2 Sat by Pulse 97 Oximetry Medical Decision Making - Medical Decision Making Was pt. sent in by a medical professional or institution (, PA, MANUFACTURING BAKER, urgent care, hospital, or fpc...) When possible be specific @ -No Did you speak to anyone other than the patient for history (EMS, parent, family, police, friend...)? What history was obtained from this source @ -No Did you review nursing and triage notes (agree or disagree)? Why? @ -I reviewed and agree with nursing and triage notes Were old charts reviewed (outside hosp., previous admission, EMS record, old EKG, old radiological studies, urgent care reports/EKG's, fpc records)? Report findings @ -No old charts were reviewed Differential Diagnosis (chest pain, altered mental status, abdominal pain women, abdominal pain men, vaginal bleeding, weakness, fever, dyspnea, syncope, h eadache, dizziness, GI bleed, back pain, seizure, CVA, palpatations, mental health, musculoskeletal)? @ -Differential Dizziness: Benign paroxysmal positional Vertigo, Meniere's disease, otitis media, acoustic neuroma, vertebrobasilar insufficiency, cerebellar stroke, encephalitis, hypovolemic, arrhythmia, coronary artery syndrome, anemia, this is not meant to be an all-inclusive list EKG interpreted by me (3pts min.). @ -EKG@2019 shows sinus rhythm rate 67, MI 159, QRS 94, [id number] X-rays interpreted by me (1pt min.). @ -None done CT interpreted by me (1pt min.). @ -None done U/S interpreted by me (1pt. min.). @ -None done What testing was considered but not performed or refused? (CT, X-rays, U/S, labs)? Why? @ -None What meds were considered but not given or refused? Why? @ -None Did you discuss the management of the patient with other professionals (professionals i.e. , PA, MANUFACTURING BAKER, lab, RT, psych nurse, social service liaison, water engineer, teacher, correction officer city or county jail, shoe parts caser)? Give summary @ -No Was smoking cessation discussed for >3mins.? @ -No Was critical care preformed (if so, how long)? @ -No Were there social determinants of health that impacted care today? How? (Homelessness, low income, unemployed, alcoholism, drug addiction, transportation, low edu. Level, literacy, decrease access to med. care, correction, rehab)? @ -No Was there de-escalation of care discussed even if they declined (Discuss DNR or withdrawal of care, Hospice)? DNR status @ -No What co-morbidities impacted this encounter? (DM, HTN, Smoking, COPD, CAD, Cancer, CVA, ARF, Chemo, Hep., AIDS, mental health diagnosis, sleep apnea, morbid obesity)? @ -None Was patient admitted / discharged? Hospital course, mention meds given and route, prescriptions, significant lab abnormalities, going to OR and other pertinent info. @ -Discharge. Patient presented emergency department for evaluation of lightheadedness. Symptoms have resolved at this time. Laboratory studies obtainedRevealing no significant leukocytosis, hemoglobin 8.4; normal coagulation studies; CMP is nonactionable. Patient was provided IV fluids in the emergency department. Orthostatics negative. He is asymptomatic at this time. He will be discharged home. He is understanding agreeable to plan. Patient stable at time of discharge. Case discussed with Dr. Oro. Undiagnosed new problem with uncertain prognosis? @ -No Drug Therapy requiring intensive monitoring for toxicity (Heparin, Nitro, Insulin, Cardizem)? @ -No Were any procedures done? @ -No Diagnosis/symptom? @ -Lightheadedness Acute, or Chronic, or Acute on Chronic? @ -Acute Uncomplicated (without systemic symptoms) or Complicated (systemic symptoms)? @ -Uncomplicated Side effects of treatment? @ -No Exacerbation, Progression, or Severe Exacerbation? @ -No Poses a threat to life or bodily function? How? (Chest pain, [place], NH, pneumonia, PE, COPD, DKA, ARF, appy, cholecystitis, CVA, Diverticulitis, Homicidal, Suicidal, threat to staff... and all critical care pts) @ -No - Lab Data Result diagrams: 08/07/24 10:42 08/07/24 10:42 Lab Results 08/07/24 08/07/24 08/07/24 Range/Units 10:42 10:42 10:42 WBC 7.47 (4.50-10.00) 10*3/uL RBC 4.73 (4.40-5.60) 10*6/uL Hgb 15.4 (13.0-17.0) g/dL Hct 43.9 (39.6-50.0) % MCV 92.8 (80.0-97.0) fL MCH 32.6 H (27.0-32.0) pg MCHC 35.1 (32.0-37.0) g/dL Plt Count 255 (140-440) 10*3/uL MPV 9.1 L (9.5-12.2) fL Immature Gran % (Auto) 0.3 % Neutrophils % 62.5 % Lymphocytes % 26.0 % Monocytes % 8.8 % Eosinophils % 1.7 % Basophils % 0.7 % Immature Gran # 0.02 (0.00-0.04) 10*3/uL Neutrophils # 4.67 (1.80-7.70) 10*3/uL Lymphocytes # 1.94 (0.90-5.00) 10*3/uL Monocytes # 0.66 (0.20-1.00) 10*3/uL Eosinophils # 0.13 (0.04-0.35) 10*3/uL Basophils # 0.05 (0.00-0.10) 10*3/uL PT 10.6 (10.0-12.5) sec INR 0.9 (<1.2) APTT 24.1 (22.0-30.0) sec Sodium 138 (137-145) mmol/L Potassium 3.6 (3.5-5.1) mmol/L Chloride 102 (98-107) mmol/L Carbon Dioxide 28 (22-30) mmol/L Anion Gap 8 mmol/L BUN 13 (9-20) mg/dL Creatinine 0.83 (0.66-1.25) mg/dL Est GFR (CKD-EPI)AfAm >90 (>60 ml/min/1.73 sqM) Est GFR (CKD-EPI)NonAf >90 (>60 ml/min/1.73 sqM) Glucose 97 (74-99) mg/dL Plasma Lactic Acid Michael (0.7-2.0) mmol/L Calcium 9.4 (8.4-10.2) mg/dL Total Bilirubin 0.5 (0.2-1.3) mg/dL AST 22 (17-59) U/L ALT 41 (4-49) U/L Alkaline Phosphatase 64 (38-126) U/L Total Protein 6.2 L (6.3-8.2) g/dL Albumin 3.9 (3.5-5.0) g/dL 08/07/24 Range/Units 10:42 WBC (4.50-10.00) 10*3/uL RBC (4.40-5.60) 10*6/uL Hgb (13.0-17.0) g/dL Hct (39.6-50.0) % MCV (80.0-97.0) fL MCH (27.0-32.0) pg MCHC (32.0-37.0) g/dL Plt Count (140-440) 10*3/uL MPV (9.5-12.2) fL Immature Gran % (Auto) % Neutrophils % % Lymphocytes % % Monocytes % % Eosinophils % % Basophils % % Immature Gran # (0.00-0.04) 10*3/uL Neutrophils # (1.80-7.70) 10*3/uL Lymphocytes # (0.90-5.00) 10*3/uL Monocytes # (0.20-1.00) 10*3/uL Eosinophils # (0.04-0.35) 10*3/uL Basophils # (0.00-0.10) 10*3/uL PT (10.0-12.5) sec INR (<1.2) APTT (22.0-30.0) sec Sodium (137-145) mmol/L Potassium (3.5-5.1) mmol/L Chloride (98-107) mmol/L Carbon Dioxide (22-30) mmol/L Anion Gap mmol/L BUN (9-20) mg/dL Creatinine (0.66-1.25) mg/dL Est GFR (CKD-EPI)AfAm (>60 ml/min/1.73 sqM) Est GFR (CKD-EPI)NonAf (>60 ml/min/1.73 sqM) Glucose (74-99) mg/dL Plasma Lactic Acid Michael 0.7 (0.7-2.0) mmol/L Calcium (8.4-10.2) mg/dL Total Bilirubin (0.2-1.3) mg/dL AST (17-59) U/L ALT (4-49) U/L Alkaline Phosphatase (38-126) U/L Total Protein (6.3-8.2) g/dL Albumin (3.5-5.0) g/dL Disposition Clinical Impression: Episodic lightheadedness Disposition: HOME SELF-CARE Condition: Stable Instructions (If sedation given, give patient instructions): Dizziness (ED) Additional Instructions: Please follow-up with your doctor. Return to the emergency department for new or worsening symptoms as we discussed. Is patient prescribed a controlled substance at d/c from ED?: No Referrals: None,Stated [Primary Care Provider] - 1-2 days
[2024-08-07] MEDS: SODIUM CHLORIDE 0.9% 1,000 ML IV STA (10:43)
[2024-08-07 11:06] VITALS: BP 123/82; PULSE 72
[2024-08-07 11:07] LABS: ALT 41 U/L (4-49); AST 22 U/L (17-59); African American GFR (CKD) >90 (>60 ml/min/1.73 sqM); Albumin 3.9 g/dL (3.5-5.0); Alkaline Phosphatase 64 U/L (38-126); Anion Gap 8 mmol/L; Basophils # (A) 0.05 10*3/uL (0.00-0.10); Basophils % (A) 0.7 %; Blood Urea Nitrogen 13 mg/dL (9-20); Calcium 9.4 mg/dL (8.4-10.2); Carbon Dioxide 28 mmol/L (22-30); Chloride 102 mmol/L (98-107); Eosinophils # (A) 0.13 10*3/uL (0.04-0.35); Eosinophils % (A) 1.7 %; Glucose 97 mg/dL (74-99); HCT 43.9 % (39.6-50.0); HGB 15.4 g/dL (13.0-17.0); Lymphocytes # (A) 1.94 10*3/uL (0.90-5.00); MCH 32.6 pg (27.0-32.0); MCHC 35.1 g/dL (32.0-37.0); MCV 92.8 fL (80.0-97.0); Mean Platelet Volume 9.1 fL (9.5-12.2); Monocytes # (A) 0.66 10*3/uL (0.20-1.00); Monocytes % (A) 8.8 %; Neutrophils # (A) 4.67 10*3/uL (1.80-7.70); Neutrophils % (A) 62.5 %; Non-African American GFR(CKD) >90 (>60 ml/min/1.73 sqM); Platelet Count 255 10*3/uL (140-440); Potassium 3.6 mmol/L (3.5-5.1); RBC 4.73 10*6/uL (4.40-5.60); Sodium 138 mmol/L (137-145); Total Bilirubin 0.5 mg/dL (0.2-1.3); Total Protein 6.2 g/dL (6.3-8.2); WBC 7.47 10*3/uL (4.50-10.00)
[2024-08-07 11:33] LABS: INR 0.9 (<1.2); Partial Thromboplastin Time 24.1 sec (22.0-30.0); Prothrombin Time 10.6 sec (10.0-12.5)
[2024-08-07 12:10] VITALS: RESP 16
== END 2024-08-07 12:10 | disposition home or self-care (01) ==
LOC: EC 09:58
DX: R42 Dizziness and giddiness (principal); F17.200 Nicotine dependence, unspecified, uncomplicated
CPT/HCPCS: 36415; 80053; 83605; 85025; 85610; 85730; 93005; 96360; 99284

== ENCOUNTER 2024-09-28 07:30 | Inpatient (IN) | payer OTHER ==
[~2024-09-28 07:30] MED LIST: HEPARIN SODIUM,PORCINE 5,000 UNIT/ML 1 ML VIAL SQ PRN; LIDOCAINE 1% (10MG/ML) FOR IV START INTRADERMA PRN; fentaNYL (PF) 50 MCG/ML 2 ML AMP IVP PRN; metroNIDAZOLE-NS PMX 500 MG in SALINE 1 100ML.BAG IVPB PRN
[2024-09-28] MEDS: LACTATED RINGERS 1,000 ML IV SCH (10:14)
[2024-09-28] MEDS: IV FLUID CONTINUATION 1,000 ML IV ONE ×2 (10:15→12:13)
[2024-09-28] MEDS: DEXAMETHASONE SOD PHOSPHATE 4 MG/ML 1 ML VIAL IV ONE (10:20)
[2024-09-28] MEDS: ONDANSETRON 4 MG/2 ML VIAL IVP ONE (10:20)
[2024-09-28] MEDS: ACETAMINOPHEN TAB 500 MG TAB PO PRN (10:20)
[2024-09-28 10:23] LABS: INR 1.0 (<1.2); Prothrombin Time 11.2 sec (10.0-12.5)
[2024-09-28 10:30] LABS: Basophils # (A) 0.07 10*3/uL (0.00-0.10); Basophils % (A) 0.9 %; Eosinophils # (A) 0.21 10*3/uL (0.04-0.35); Eosinophils % (A) 2.6 %; HCT 48.2 % (39.6-50.0); HGB 17.2 g/dL (13.0-17.0); Lymphocytes # (A) 2.05 10*3/uL (0.90-5.00); Lymphocytes % (A) 25.0 %; MCH 33.1 pg (27.0-32.0); MCHC 35.7 g/dL (32.0-37.0); MCV 92.7 fL (80.0-97.0); Monocytes # (A) 0.74 10*3/uL (0.20-1.00); Monocytes % (A) 9.0 %; Neutrophils # (A) 5.10 10*3/uL (1.80-7.70); Neutrophils % (A) 62.1 %; Platelet Count 252 10*3/uL (140-440); RBC 5.20 10*6/uL (4.40-5.60); RDW 12.8 % (11.5-14.5); WBC 8.20 10*3/uL (4.50-10.00)
[2024-09-28 10:32] LABS: African American GFR (CKD) >90 (>60 ml/min/1.73 sqM); Anion Gap 11 mmol/L; Blood Urea Nitrogen 14 mg/dL (9-20); Calcium 9.3 mg/dL (8.4-10.2); Carbon Dioxide 24 mmol/L (22-30); Chloride 106 mmol/L (98-107); Glucose 113 mg/dL (74-99); Non-African American GFR(CKD) >90 (>60 ml/min/1.73 sqM); Potassium 4.1 mmol/L (3.5-5.1); Sodium 141 mmol/L (137-145)
[2024-09-28] MEDS: MIDAZOLAM 2 MG/2 ML VIAL IV PRN (10:51)
[2024-09-28] MEDS ORDERED: SUCCINYLCHOLINE CHLORIDE 200 MG/10 ML VIAL IV ONE (11:06)
[2024-09-28] MEDS ORDERED: ROCURONIUM 10 MG/ML (5 ML VIAL) IV ONE (11:06)
[2024-09-28] MEDS ORDERED: fentaNYL (PF) 50 MCG/ML 2 ML AMP ONE (11:06)
[2024-09-28] MEDS ORDERED: MIDAZOLAM 2 MG/2 ML VIAL ONE (11:06)
[2024-09-28] MEDS ORDERED: HYDROmorphone (PF) 1 MG/ML ONE (11:06)
[2024-09-28] MEDS ORDERED: LIDOCAINE 1% INJ 10MG/ML (20 ML MDV) ONE (11:06)
[2024-09-28] MEDS ORDERED: NEOSTIGMINE 1 MG/ML 10 ML VIAL ONE (11:06)
[2024-09-28] MEDS ORDERED: PROPOFOL 10 MG/ML 20 ML VIAL IV ONE (11:06)
[2024-09-28] MEDS ORDERED: KETAMINE HCL IN 0.9 % NACL 50 MG/5 ML SYRINGE ONE (11:06)
[2024-09-28] MEDS ORDERED: GLYCOPYRROLATE 0.2 MG/ML 2 ML VIAL ONE (11:06)
[2024-09-28] MEDS ORDERED: LABETALOL 5 MG/ML VIAL MDV ONE (11:06)
[2024-09-28] MEDS ORDERED: NALOXONE 0.4 MG/ML 1 ML VIAL IV PRN (11:07)
[2024-09-28] MEDS ORDERED: METOCLOPRAMIDE 5 MG/ML 2 ML VIAL IVP PRN (13:05)
[2024-09-28] MEDS ORDERED: BENZOCAINE/MENTHOL LOZENG 1 EACH LOZENGE MUCOUS MEM PRN (13:05)
[2024-09-28] MEDS ORDERED: ONDANSETRON 4 MG/2 ML VIAL IVP PRN (13:05)
--- NOTE | 2024-09-28 13:11 | P.OP ---
Date of Procedure: 09/28/24 Preoperative Diagnosis: Diverticulitis Postoperative Diagnosis: Diverticulitis Procedure(s) Performed: Low anterior resection Anesthesia: SHAZIA Surgeon: Man Thompson Estimated Blood Loss (ml): 25 Pathology: other (Sigmoid colon) Condition: stable Disposition: PACU Description of Procedure: Patient was placed on the operative table in the dorsal lithotomy position after receiving general anesthesia. His abdomen was prepped and draped you sterile fashion. The skin was incised in the low midline position. Then use electrocautery the abdominal wall was divided. The Bookwalter tracks placed the wound. The sigmoid colon was palpated. There was evidence of diverticulosis and evidence of inflammatory changes sigmoid colon. The sigmoid colon was mobilized towards the midline. And then the left colon white line of Toldt was divided. An enterotomy was made in the sigmoid colon. Then the anvil for the 29 mm EEA stapler was placed into the colon. The colon was then transected with a LISSY stapler. And then the spike from the anvil was driven through the staple line. The enterotomy was closed with 3-0 GI silk suture on the specimen side. And then using the LigaSure device the mesentery of the colon was divided. And then the rectum was transected with the contour stapler. The specimen sent to pathology. It was irrigated there is no bleeding seen. At this point the nurse first assist placed t anal dilators the patient anus. And then the EEA stapler was placed in the patient's anus and passed up into the rectum. The spike for the stapler was driven through the staple line. The anvil was connected stapler. The stent was then closed and fired. Stapler was then removed. 2 intact donut tissue rings were removed from the stapler. Next using a bowel clamp the colon was occluded. And then using the rigid sigmoidoscope the air was air insufflation of the rectum. There was no evidence of any extravasation at the staple line. At this point the bowel clamp was removed. The sigmoidoscope was removed. The eye was irrigated. The fascia then closed with looped #1 PDS suture. Skin was closed with darwin. Patient was sent to recovery room in stable condition.
[2024-09-28] MEDS: HYDROmorphone 0.5 MG/0.5 ML SYRINGE IVP PRN (14:09)
[2024-09-28 19:21] LABS: Basophils # (A) 0.06 10*3/uL (0.00-0.10); Basophils % (A) 0.4 %; Eosinophils # (A) 0.01 10*3/uL (0.04-0.35); Eosinophils % (A) 0.1 %; HCT 45.6 % (39.6-50.0); HGB 16.2 g/dL (13.0-17.0); Lymphocytes # (A) 1.21 10*3/uL (0.90-5.00); Lymphocytes % (A) 7.8 %; MCH 33.5 pg (27.0-32.0); MCHC 35.5 g/dL (32.0-37.0); MCV 94.4 fL (80.0-97.0); Monocytes # (A) 1.00 10*3/uL (0.20-1.00); Monocytes % (A) 6.5 %; Neutrophils # (A) 13.12 10*3/uL (1.80-7.70); Neutrophils % (A) 84.8 %; Platelet Count 217 10*3/uL (140-440); RBC 4.83 10*6/uL (4.40-5.60); RDW 12.7 % (11.5-14.5); WBC 15.46 10*3/uL (4.50-10.00)
[2024-09-28 19:32] LABS: African American GFR (CKD) >90 (>60 ml/min/1.73 sqM); Anion Gap 9 mmol/L; Blood Urea Nitrogen 14 mg/dL (9-20); Calcium 8.9 mg/dL (8.4-10.2); Carbon Dioxide 26 mmol/L (22-30); Chloride 104 mmol/L (98-107); Glucose 106 mg/dL (74-99); Non-African American GFR(CKD) >90 (>60 ml/min/1.73 sqM); Potassium 4.2 mmol/L (3.5-5.1); Sodium 139 mmol/L (137-145)
[2024-09-28] MEDS: D5-0.45% NACL WITH KCL 20MEQ/L 1,000 ML IV SCH (20:08)
[2024-09-28] MEDS: FAMOTIDINE 20 MG/2 ML VIAL IV SCH (20:08)
[2024-09-28] MEDS: HEPARIN SODIUM,PORCINE 5,000 UNIT/ML 1 ML VIAL SQ SCH (21:58)
--- NOTE | 2024-09-29 06:19 | P.ANPRN ---
Procedure Note - Anesthesia - Epidural/Spinal Epidural Continuous Time Out Performed: Yes Date of Procedure: 09/28/24 Procedure Start Time: 10:50 Procedure Stop Time: 10:58 Location of Patient: PreOp Indication: Acute Post-Operative Pain, Requested by Surgeon Sedation Type: Sedate with meaningful contact maintained Preparation: Sterile Dressing Position: Sitting Catheter: Indwelling (Test dose Xylocaine 0.5% plus epi 3 cc was given via the epidural no adverse effects noted) Needle Guage: 18 Blood Aspirated: No Pain Paresthesia on Injection Noted: No Events: Uneventful and Well Tolerated (Test dose Xylocaine 1.5% plus epinephrine 3 cc was given while the epidural catheter no adverse effects noted)
--- NOTE | 2024-09-29 06:25 | P.PN ---
Progress Note - Text 09/29/24 611am 4-year-old male status post exploratory lap. Patient has an catheter for postop pain control with a solution running at 8 cc an hour with a VAS of 0 at rest. Patient does have some pain when he coughs. No complaints of nausea vomiting or pruritus. No motor or sensory deficit noted. Plan to continue epidural infusion
[2024-09-29] MEDS: ALVIMOPAN 12 MG CAPSULE PO SCH (08:44)
[2024-09-29] MEDS ORDERED: LORazepam 1 MG TAB PO PRN (11:58)
[2024-09-29] MEDS ORDERED: ALBUTEROL NEBULIZED 2.5 MG/3 ML INHALATION PRN ×2 (11:58)
--- NOTE | 2024-09-29 12:16 | P.CONS ---
History of Present Illness - Reason for Consult Consult date: 09/29/24 Medical management, status post sigmoid resection - History of Present Illness This is a pleasant 54-year-old male who was admitted under surgery services status post lower anterior sigmoid resection. Patient follows with Dr. Londono in the outpatient setting with a past medical history of GERD, hypertension, diverticulitis, EtOH, current continued ongoing nicotine abuse, daily drinking, marijuana use. Labs reviewed from yesterday evening reveal a white count of 15.46 although prior to surgery was 8.20, hemoglobin 16.2, platelets 217, sodium 139 with a potassium of 4.2, BUN is 14 with a creatinine of 0.80, random glucose was 106. Patient is currently being started on clear liquid diet and also continued on D5.45 with potassium at 125 an hour. Will decrease the dose to 75 an hour as patient is also having some wheezing. Patient reports he does smoke about 1 pack of cigarettes daily and is refusing nicotine patch or gum. Patient also reports to drinking a few beers daily and denies any feelings of withdrawal. Will place as needed Ativan and recommend to monitor for any withdrawals closely. Patient does continue with indwelling Orellana catheter and has epidural pump which will be monitored by anesthesia and possibly removed tomorrow. Patient is currently sitting up in the chair and recommend incentive spirometer use at least 10 times every hour while awake. REVIEW OF SYSTEMS: CONSTITUTIONAL: No fever, no malaise, no fatigue. HEENT: No recent visual problems or hearing problems. Denied any sore throat. CARDIOVASCULAR: No chest pain, orthopnea, PND, no palpitations, no syncope. PULMONARY: No shortness of breath, no cough, no hemoptysis. GASTROINTESTINAL: No diarrhea, no nausea, no vomiting, reports of diffuse abdominal pain and tenderness. NEUROLOGICAL: No headaches, no weakness, no numbness. HEMATOLOGICAL: Denies any bleeding or petechiae. GENITOURINARY: Denies any burning micturition, frequency, or urgency. MUSCULOSKELETAL/RHEUMATOLOGICAL: Denies any joint pain, swelling, or any muscle pain. ENDOCRINE: Denies any polyuria or polydipsia. The rest of the 14-point review of systems is negative. PHYSICAL EXAMINATION: GENERAL: The patient is alert and oriented x3, not in any acute distress. Well developed, well nourished. Obese HEENT: Pupils are round and equally reacting to light. EOMI. No scleral icterus. No conjunctival pallor. Normocephalic, atraumatic. No pharyngeal erythema. No thyromegaly. CARDIOVASCULAR: S1 and S2 muffled PULMONARY: Diminished breath sounds bilaterally with a few scattered expiratory wheezes noted at the bases. No crackles noted. ABDOMEN: Soft, tender, nondistended, hypooactive bowel sounds. No palpable organomegaly. MUSCULOSKELETAL: No joint swelling or deformity. EXTREMITIES: No cyanosis, clubbing, or pedal edema. NEUROLOGICAL: Gross neurological examination did not reveal any focal deficits. SKIN: No rashes. Assessment: Diverticulitis, status post lower anterior sigmoid resection, postop day 1 Elevated white blood count, 15.46, possibly reactive History of GERD History of previous diverticulitis History of hypertension History of alcohol abuse and daily alcohol use, does not appear to be actively withdrawing although recommend monitoring closely and will add as needed Ativan Continued ongoing nicotine dependence THC use Obesity with a BMI of 32.4 GI prophylaxis DVT prophylaxis Full code Plan: Patient admitted under general surgery services status post lower anterior sigmoid resection with history of diverticulitis Patient is maintained on D5/0.45 Normal saline with potassium supplement and recommend to decrease rate, will decrease the rate to 75 mL/h Patient on clear liquids per surgery and only to advance per surgery Encourage increase activity as tolerated with sitting up in the chair more frequently. Patient is somewhat confined as patient has an epidural pump and indwelling Orellana catheter which may be removed tomorrow Encourage incentive spirometer use at least 10 times every hour while awake Resume appropriate home medications Follow-up on basic labs, replace electrolytes per protocol Patient does smoke about 1 pack of cigarettes per day and is refusing nicotine patch or gum at this time. Patient also admits to drinking a few beers daily and denies any feelings of withdrawal. Monitor closely and will add as needed Ativan Thank you kindly for this consultation. We will continue to follow with general surgery during hospitalization The impression and plan of care has been dictated by Lyssa Chandler, Nurse Practitioner as directed. Dr. Shanna MD I have performed a history and examination and MDM of this patient, discussed the same with the dictator, and agree with the dictator's assessment and plan as written ,documented as a scribe. Based on total visit time, I have performed more than 50% of the visit. Past Medical History Past Medical History: GERD/Reflux, Hypertension Additional Past Medical History / Comment(s): diverticulitis, etoh abuse History of Any Multi-Drug Resistant Organisms: None Reported Past Surgical History: Cholecystectomy, Ear Surgery, Hernia Repair Additional Past Surgical History / Comment(s): PILONIDAL CYST EXC., colonoscopy Past Anesthesia/Blood Transfusion Reactions: No Reported Reaction Past Psychological History: No Psychological Hx Reported Smoking Status: Current every day smoker Past Alcohol Use History: Daily Additional Past Alcohol Use History / Comment(s): SMOKES 1 PPD since 1994. 4 drinks/night Past Drug Use History: Marijuana Additional Drug Use History / Comment(s): occ. smokes marijuana Medications and Allergies Home Medications Medication Instructions Recorded Confirmed Type Lisinopril-Hctz 20-25 mg 1 tab PO DAILY 07/20/24 09/28/24 History [Zestoretic ] Allergies Allergy/AdvReac Type Severity Reaction Status Date / Time No Known Allergies Allergy Verified 09/28/24 10:13 Physical Exam Vitals: Vital Signs Temp Pulse Pulse Resp BP BP Pulse Ox 09/29/24 07:26 98.2 F 69 18 129/85 97 09/29/24 01:55 98.2 F 73 18 135/79 97 09/28/24 20:32 68 122/83 94 L 09/28/24 20:17 71 128/81 94 L 09/28/24 19:47 72 126/69 09/28/24 19:32 69 128/80 95 09/28/24 19:10 98.1 F 72 16 125/76 98 09/28/24 18:00 91 16 126/88 100 09/28/24 17:30 90 16 113/80 100 09/28/24 17:00 89 16 122/79 100 09/28/24 16:30 70 16 127/85 100 09/28/24 16:00 91 16 140/91 98 09/28/24 15:00 83 12 149/85 97 09/28/24 14:47 62 16 126/82 96 09/28/24 14:32 67 14 137/84 95 09/28/24 14:17 68 14 143/91 95 09/28/24 14:02 67 16 143/93 97 09/28/24 13:47 64 14 142/90 98 09/28/24 13:32 67 16 139/86 97 09/28/24 13:17 68 16 145/91 98 09/28/24 13:02 97.1 F L 76 15 140/94 98 09/28/24 11:00 58 L 16 131/95 100 Intake and Output 09/28/24 09/29/24 09/29/24 22:59 06:59 14:59 Intake Total 1000 Output Total 1350 Balance -350 Intake: Oral 1000 Output: Urine 1350 Other: Voiding Method Indwelling Catheter Weight 96.7 kg Results CBC & Chem 7: 09/28/24 19:11 09/28/24 19:11 Labs: Abnormal Lab Results - Last 24 Hours (Table) 09/28/24 09/28/24 09/28/24 Range/Units 09:59 09:59 19:11 WBC 15.46 H (4.50-10.00) 10*3/uL Hgb 17.2 H (13.0-17.0) g/dL MCH 33.1 H 33.5 H (27.0-32.0) pg MPV 9.0 L 9.0 L (9.5-12.2) fL Immature Gran # 0.06 H (0.00-0.04) 10*3/uL Neutrophils # 13.12 H (1.80-7.70) 10*3/uL Eosinophils # 0.01 L (0.04-0.35) 10*3/uL Glucose 113 H (74-99) mg/dL 09/28/24 Range/Units 19:11 WBC (4.50-10.00) 10*3/uL Hgb (13.0-17.0) g/dL MCH (27.0-32.0) pg MPV (9.5-12.2) fL Immature Gran # (0.00-0.04) 10*3/uL Neutrophils # (1.80-7.70) 10*3/uL Eosinophils # (0.04-0.35) 10*3/uL Glucose 106 H (74-99) mg/dL
[2024-09-29] MEDS: ROPIVACAINE 250 MG, HYDROMORPHONE (PF) 5 MG in SODIUM CHLORIDE 0.9% 200 ML EPIDURAL PRN (12:55)
[2024-09-30 08:13] LABS: Anion Gap 8.30 mmol/L (4.00-12.00); BUN/Creat Ratio 7.75 Ratio (12.00-20.00); Blood Urea Nitrogen 6.2 mg/dL (9.0-27.0); Calcium 8.4 mg/dL (8.7-10.3); Carbon Dioxide 25.7 mmol/L (21.6-31.8); Chloride 104 mmol/L (96-109); Glucose 143 mg/dL (70-110); Magnesium 2.1 mg/dL (1.5-2.4); Potassium 4.2 mmol/L (3.5-5.5); Sodium 138 mmol/L (135-145)
[2024-09-30 08:15] LABS: Basophils # (A) 0.05 X 10*3/uL (0.00-0.10); Basophils % (A) 0.5 %; Eosinophils # (A) 0.06 X 10*3/uL (0.04-0.35); Eosinophils % (A) 0.6 %; HCT 40.0 % (39.6-50.0); HGB 13.6 g/dL (13.0-17.0); Immature Grans, Automated 0.60 %; Lymphocytes # (A) 1.31 X 10*3/uL (0.90-5.00); Lymphocytes % (A) 13.2 %; MCH 32.7 pg (27.0-32.0); MCHC 34.0 g/dL (32.0-37.0); MCV 96.2 FL (80.0-97.0); Monocytes # (A) 0.99 X 10*3/uL (0.20-1.00); Monocytes % (A) 9.9 %; NRBC Per 100 WBC 0 X 10*3/uL (0.00-0.01); Neutrophils # (A) 7.48 X 10*3/uL (1.80-7.70); Neutrophils % (A) 75.2 %; Platelet Count 212 X 10*3/uL (140-440); RBC 4.16 X 10*6/uL (4.40-5.60); RDW 12.8 % (11.5-14.5); WBC 9.95 X 10*3/uL (4.50-10.00)
--- NOTE | 2024-09-30 13:28 | P.PN ---
Progress Note - Text Progress Note Date: 09/30/24 Postoperative day # 1 status post sigmoid resection epidural catheter placed for postoperative analgesia, patient doing well epidural site okay, patient currently on combination of epidural infusion solution of Ropivacaine 0.0625% and Dilaudid 20 g per mL the infusion rate at 8 ml per hour , patient had no motor deficit epidural site okay , vital signs stable ,VAS 2/10 , Assessment and plan= post operative day #1 patient doing well ,pain well controlled , there is no anesthesia related complications
--- NOTE | 2024-09-30 14:11 | P.PN ---
Subjective Progress Note Date: 09/30/24 The patient is postoperative day 2 from low anterior resection. He is doing fairly well. He has minimal complaints of pain. On exam vital signs appear stable. Abdomen soft. Status post sigmoid low anterior section. For diverticulitis. Patient will have his removed tomorrow. Objective - Vital Signs Vital signs: Vital Signs Temp 98.3 F 09/30/24 08:07 Pulse 67 09/30/24 08:07 Resp 17 09/30/24 08:07 BP 127/84 09/30/24 08:07 Pulse Ox 99 09/30/24 08:07 FiO2 Intake & Output 09/29/24 09/30/24 09/30/24 18:59 06:59 18:59 Intake Total 2760 Output Total 900 3100 1500 Balance -900 -340 -1500 Intake: Oral 2760 Output: Urine 900 3100 1500 Other: Voiding Method Indwelling Catheter Indwelling Catheter Indwelling Catheter - Labs CBC & Chem 7: 09/30/24 02:54 09/30/24 02:54 Labs: Abnormal Lab Results - Last 24 Hours (Table) 09/30/24 09/30/24 Range/Units 02:54 02:54 RBC 4.16 L (4.40-5.60) X 10*6/uL MCH 32.7 H (27.0-32.0) pg Immature Gran # 0.06 H (0.00-0.04) X 10*3/uL BUN 6.2 L (9.0-27.0) mg/dL BUN/Creatinine Ratio 7.75 L (12.00-20.00) Ratio Glucose 143 H (70-110) mg/dL Calcium 8.4 L (8.7-10.3) mg/dL Microbiology - Last 24 Hours (Table) 09/28/24 12:50 Urine Culture - Final Urine,Catheterized
--- NOTE | 2024-10-01 05:14 | P.PN ---
Subjective Progress Note Date: 09/30/24 - Reason for Consult Consult date: 09/29/24 Medical management, status post sigmoid resection - History of Present Illness This is a pleasant 54-year-old male who was admitted under surgery services status post lower anterior sigmoid resection. Patient follows with Dr. Londono in the outpatient setting with a past medical history of GERD, hypertension, diverticulitis, EtOH, current continued ongoing nicotine abuse, daily drinking, marijuana use. Labs reviewed from yesterday evening reveal a white count of 15.46 although prior to surgery was 8.20, hemoglobin 16.2, platelets 217, sodium 139 with a potassium of 4.2, BUN is 14 with a creatinine of 0.80, random glucose was 106. Patient is currently being started on clear liquid diet and also continued on D5.45 with potassium at 125 an hour. Will decrease the dose to 75 an hour as patient is also having some wheezing. Patient reports he does smoke about 1 pack of cigarettes daily and is refusing nicotine patch or gum. Patient also reports to drinking a few beers daily and denies any feelings of withdrawal. Will place as needed Ativan and recommend to monitor for any withdrawals closely. Patient does continue with indwelling Orellana catheter and has epidural pump which will be monitored by anesthesia and possibly removed tomorrow. Patient is currently sitting up in the chair and recommend incentive spirometer use at least 10 times every hour while awake. 09/30/2024 Patient is seen in follow-up today and reports no acute overnight issues. Patient did have some abdominal discomfort when getting up and position changes otherwise as reported as being managed. Patient does continue with epidural pain pump and discussing possibly discontinuing today or tomorrow. Patient continues with indwelling Orellana catheter and and will continue until patient denies any significant gas is having belching. Patient remains on clear liquids per surgery and is tolerating awaiting advancing diet. Encouraged increased activity as tolerated with frequent walking once pain pump is removed. Patient is a daily alcohol drinker does not appear to be actively withdrawing at this time. Will continue to monitor and have CIWA as needed Review of systems: Constitutional: No reports of fatigue, fever, or chills Cardiovascular: No reports of chest pain or palpitations Respiratory: No reports of shortness of breath or cough GI: No reports of nausea, vomiting, or diarrhea, reports not passing much gas and continues with some abdominal discomfort : No reports of dysuria or retention Neurovascular: No reports of weakness or numbness All medications have been reviewed The rest of the 14-point review of systems is negative. PHYSICAL EXAMINATION: GENERAL: The patient is alert and oriented x3, not in any acute distress. Well developed, well nourished. Obese HEENT: Pupils are round and equally reacting to light. EOMI. No scleral icterus. No conjunctival pallor. Normocephalic, atraumatic. No pharyngeal erythema. No thyromegaly. CARDIOVASCULAR: S1 and S2 muffled PULMONARY: Diminished breath sounds bilaterally with a few scattered expiratory wheezes noted at the bases. No crackles noted. ABDOMEN: Soft, tender, nondistended, hypooactive bowel sounds. No palpable organomegaly. MUSCULOSKELETAL: No joint swelling or deformity. EXTREMITIES: No cyanosis, clubbing, or pedal edema. NEUROLOGICAL: Gross neurological examination did not reveal any focal deficits. SKIN: No rashes. Assessment: Diverticulitis, status post lower anterior sigmoid resection, postop day 2 Elevated white blood count, 15.46, possibly reactive, improved and has normalized. History of GERD History of previous diverticulitis History of hypertension History of alcohol abuse and daily alcohol use, does not appear to be actively withdrawing although recommend monitoring closely and will add as needed Ativan Continued ongoing nicotine dependence THC use Obesity with a BMI of 32.4 GI prophylaxis DVT prophylaxis Full code Plan: Patient admitted under general surgery services status post lower anterior sigmoid resection with history of diverticulitis Patient is maintained on D5/0.45 Normal saline with potassium supplement and recommend to decrease rate, will decrease the rate to 75 mL/h Patient on clear liquids per surgery and only to advance per surgery Encourage increase activity as tolerated with sitting up in the chair more frequently. Patient is somewhat confined as patient has an epidural pump and indwelling Orellana catheter which may be removed tomorrow Encourage incentive spirometer use at least 10 times every hour while awake Resume appropriate home medications Follow-up on basic labs, replace electrolytes per protocol Patient does smoke about 1 pack of cigarettes per day and is refusing nicotine patch or gum at this time. Patient also admits to drinking a few beers daily and denies any feelings of withdrawal. Monitor closely and will add as needed Ativan Thank you kindly for this consultation. We will continue to follow with general surgery during hospitalization The impression and plan of care has been dictated by Lyssa Chandler, Nurse Practitioner as directed. Dr. Shanna MD I have performed a history and examination and MDM of this patient, discussed the same with the dictator, and agree with the dictator's assessment and plan as written ,documented as a scribe. Based on total visit time, I have performed more than 50% of the visit. Objective - Vital Signs Vital signs: Vital Signs Temp 98.3 F 09/30/24 08:07 Pulse 67 09/30/24 08:07 Resp 17 09/30/24 08:07 BP 127/84 09/30/24 08:07 Pulse Ox 99 09/30/24 08:07 FiO2 Intake & Output 09/29/24 09/30/24 09/30/24 18:59 06:59 18:59 Intake Total 2760 Output Total 900 3100 Balance -900 -340 Intake: Oral 2760 Output: Urine 900 3100 Other: Voiding Method Indwelling Catheter Indwelling Catheter - Labs CBC & Chem 7: 09/30/24 02:54 09/30/24 02:54 Labs: Abnormal Lab Results - Last 24 Hours (Table) 09/30/24 09/30/24 Range/Units 02:54 02:54 RBC 4.16 L (4.40-5.60) X 10*6/uL MCH 32.7 H (27.0-32.0) pg Immature Gran # 0.06 H (0.00-0.04) X 10*3/uL BUN 6.2 L (9.0-27.0) mg/dL BUN/Creatinine Ratio 7.75 L (12.00-20.00) Ratio Glucose 143 H (70-110) mg/dL Calcium 8.4 L (8.7-10.3) mg/dL Microbiology - Last 24 Hours (Table) 09/28/24 12:50 Urine Culture - Final Urine,Catheterized
[2024-10-01] MEDS ORDERED: HYDROmorphone 1 MG/ML 1 ML SYRINGE IVP PRN (11:45)
--- NOTE | 2024-10-01 12:19 | P.PN ---
Progress Note - Text Progress Note Date: 10/01/24 Postoperative day #2 status post sigmoid resection epidural catheter placed for postoperative analgesia, patient doing well epidural site okay, patient currently on combination of epidural infusion solution of Ropivacaine 0.0625% and Dilaudid 20 g per mL the infusion rate at 8 ml per hour , patient had no motor deficit epidural site okay , vital signs stable ,VAS 2/10 , epidural catheter discontinued today, tip intact ,site okay Assessment and plan= post operative day #2 patient doing well ,pain well controlled , there is no anesthesia related complications, epidural catheter removed, patient doing well, patient will be started on oral pain medication ,as per surgical team
--- NOTE | 2024-10-01 15:19 | P.PN ---
Subjective Progress Note Date: 10/01/24 Patient's postoperative 3 from low anterior resection. Patient feels well. He has had some flatus. On exam vital signs appear stable. Abdomen is soft. Patient will have his epidural catheter removed today. Will also remove his Orellana catheter. He will have his diet advanced. Objective - Vital Signs Vital signs: Vital Signs Temp 97.9 F 10/01/24 12:55 Pulse 57 L 10/01/24 12:55 Resp 16 10/01/24 12:55 BP 150/93 10/01/24 12:55 Pulse Ox 99 10/01/24 12:55 FiO2 Intake & Output 09/30/24 10/01/24 10/01/24 18:59 06:59 18:59 Intake Total 2110 Output Total 2550 1650 2500 Balance -2550 460 -2500 Intake: Intake, IV Titration 250 Amount Ropivacaine 250 mg 250 Hydromorphone (Pf) 5 mg In Sodium Chloride 0.9% 200 ml @ Per Protocol EPIDURAL .Q0M PRN Rx#: [id number] Oral 1860 Output: Urine 2550 1650 2500 Other: Voiding Method Indwelling Catheter Indwelling Catheter Indwelling Catheter - Labs CBC & Chem 7: 09/30/24 02:54 09/30/24 02:54
--- NOTE | 2024-10-02 05:00 | P.PN ---
Subjective Progress Note Date: 10/01/24 - Reason for Consult Consult date: 09/29/24 Medical management, status post sigmoid resection - History of Present Illness This is a pleasant 54-year-old male who was admitted under surgery services status post lower anterior sigmoid resection. Patient follows with Dr. Londono in the outpatient setting with a past medical history of GERD, hypertension, diverticulitis, EtOH, current continued ongoing nicotine abuse, daily drinking, marijuana use. Labs reviewed from yesterday evening reveal a white count of 15.46 although prior to surgery was 8.20, hemoglobin 16.2, platelets 217, sodium 139 with a potassium of 4.2, BUN is 14 with a creatinine of 0.80, random glucose was 106. Patient is currently being started on clear liquid diet and also continued on D5.45 with potassium at 125 an hour. Will decrease the dose to 75 an hour as patient is also having some wheezing. Patient reports he does smoke about 1 pack of cigarettes daily and is refusing nicotine patch or gum. Patient also reports to drinking a few beers daily and denies any feelings of withdrawal. Will place as needed Ativan and recommend to monitor for any withdrawals closely. Patient does continue with indwelling Orellana catheter and has epidural pump which will be monitored by anesthesia and possibly removed tomorrow. Patient is currently sitting up in the chair and recommend incentive spirometer use at least 10 times every hour while awake. 09/30/2024 Patient is seen in follow-up today and reports no acute overnight issues. Patient did have some abdominal discomfort when getting up and position changes otherwise as reported as being managed. Patient does continue with epidural pain pump and discussing possibly discontinuing today or tomorrow. Patient continues with indwelling Orellana catheter and and will continue until patient denies any significant gas is having belching. Patient remains on clear liquids per surgery and is tolerating awaiting advancing diet. Encouraged increased activity as tolerated with frequent walking once pain pump is removed. Patient is a daily alcohol drinker does not appear to be actively withdrawing at this time. Will continue to monitor and have CIWA as needed 10/01/2024 Patient is seen in follow-up today reporting continued abdominal discomfort when moving and coughing although when sitting up reports to feeling improved. No reports of gas or bowel movement as of yet. Patient did have indwelling Orellana catheter removed and will likely have epidural pain pump removed as well with anesthesia. Encourage increase activity as tolerated with frequent walking and slowly advancing diet per general surgery. Full liquids ordered and would recommend discontinuing IV fluids. Follow-up on repeat labs and replace electrolytes per protocol. Patient does take lisinopril/hydrochlorothiazide in the outpatient setting and will add low-dose lisinopril, continue holding diuretics at this time. Review of systems: Constitutional: No reports of fatigue, fever, or chills Cardiovascular: No reports of chest pain or palpitations Respiratory: No reports of shortness of breath or cough GI: No reports of nausea, vomiting, or diarrhea, reports not passing gas and continues with some abdominal discomfort, no bowel movement as of yet : No reports of dysuria or retention Neurovascular: No reports of weakness or numbness All medications have been reviewed The rest of the 14-point review of systems is negative. PHYSICAL EXAMINATION: GENERAL: The patient is alert and oriented x3, not in any acute distress. Well developed, well nourished. Obese HEENT: Pupils are round and equally reacting to light. EOMI. No scleral icterus. No conjunctival pallor. Normocephalic, atraumatic. No pharyngeal erythema. No thyromegaly. CARDIOVASCULAR: S1 and S2 muffled PULMONARY: Diminished breath sounds bilaterally with a few scattered expiratory wheezes noted at the bases. No crackles noted. ABDOMEN: Soft, tender, nondistended, hypooactive bowel sounds. No palpable organomegaly. MUSCULOSKELETAL: No joint swelling or deformity. EXTREMITIES: No cyanosis, clubbing, or pedal edema. NEUROLOGICAL: Gross neurological examination did not reveal any focal deficits. SKIN: No rashes. Assessment: Diverticulitis, status post lower anterior sigmoid resection Elevated white blood count, 15.46, likely reactive, improved and has normalized. History of GERD History of previous diverticulitis History of hypertension History of alcohol abuse and daily alcohol use, does not appear to be actively withdrawing although recommend monitoring closely and will add as needed Ativan Continued ongoing nicotine dependence THC use Obesity with a BMI of 32.4 GI prophylaxis DVT prophylaxis Full code Plan: Patient admitted under general surgery services status post lower anterior sigmoid resection with history of diverticulitis Patient is maintained on D5/0.45 Normal saline with potassium supplement and recommend to discontinue fluids as patient is tolerating clears and being advanced to full liquids Encourage increase activity as tolerated with sitting up in the chair more frequently. Patient is somewhat confined as patient has an epidural pump and indwelling Orellana catheter which is being removed today Encourage incentive spirometer use at least 10 times every hour while awake Resume appropriate home medications and will resume low-dose lisinopril, continue to hold hydrochlorothiazide at this time Follow-up on basic labs, replace electrolytes per protocol Patient does smoke about 1 pack of cigarettes per day and is refusing nicotine patch or gum at this time. Patient also admits to drinking a few beers daily and denies any feelings of withdrawal. Monitor closely and will add as needed Ativan Thank you kindly for this consultation. We will continue to follow with general surgery during hospitalization The impression and plan of care has been dictated by Lyssa Chandler, Nurse Practitioner as directed. Dr. Shanna MD I have performed a history and examination and MDM of this patient, discussed the same with the dictator, and agree with the dictator's assessment and plan as written ,documented as a scribe. Based on total visit time, I have performed more than 50% of the visit. Objective - Vital Signs Vital signs: Vital Signs Temp 97.8 F 10/01/24 02:25 Pulse 52 L 10/01/24 02:25 Resp 16 10/01/24 02:25 BP 147/84 10/01/24 02:25 Pulse Ox 97 10/01/24 02:25 FiO2 Intake & Output 09/30/24 09/30/24 10/01/24 06:59 18:59 06:59 Intake Total 2760 490 Output Total 3100 2550 825 Balance -340 -2550 -335 Intake: Intake, IV Titration 250 Amount Ropivacaine 250 mg 250 Hydromorphone (Pf) 5 mg In Sodium Chloride 0.9% 200 ml @ Per Protocol EPIDURAL .Q0M PRN Rx#: [id number] Oral 2760 240 Output: Urine 3100 2550 825 Other: Voiding Method Indwelling Catheter Indwelling Catheter - Labs CBC & Chem 7: 09/30/24 02:54 09/30/24 02:54 Labs: Abnormal Lab Results - Last 24 Hours (Table) 09/30/24 09/30/24 Range/Units 02:54 02:54 RBC 4.16 L (4.40-5.60) X 10*6/uL MCH 32.7 H (27.0-32.0) pg Immature Gran # 0.06 H (0.00-0.04) X 10*3/uL BUN 6.2 L (9.0-27.0) mg/dL BUN/Creatinine Ratio 7.75 L (12.00-20.00) Ratio Glucose 143 H (70-110) mg/dL Calcium 8.4 L (8.7-10.3) mg/dL
[2024-10-02] MEDS: HYDROcodone/APAP 5-325MG 1 EACH TAB PO PRN (08:18)
[2024-10-02 08:52] LABS: Basophils # (A) 0.06 X 10*3/uL (0.00-0.10); Basophils % (A) 0.9 %; Eosinophils # (A) 0.27 X 10*3/uL (0.04-0.35); Eosinophils % (A) 3.9 %; HCT 39.5 % (39.6-50.0); HGB 13.5 g/dL (13.0-17.0); Immature Grans, Automated 0.30 %; Lymphocytes # (A) 1.50 X 10*3/uL (0.90-5.00); Lymphocytes % (A) 21.9 %; MCH 32.1 pg (27.0-32.0); MCHC 34.2 g/dL (32.0-37.0); MCV 94.0 FL (80.0-97.0); Monocytes # (A) 0.89 X 10*3/uL (0.20-1.00); Monocytes % (A) 13.0 %; NRBC Per 100 WBC 0 X 10*3/uL (0.00-0.01); Neutrophils # (A) 4.12 X 10*3/uL (1.80-7.70); Neutrophils % (A) 60.0 %; Platelet Count 232 X 10*3/uL (140-440); RBC 4.20 X 10*6/uL (4.40-5.60); RDW 12.6 % (11.5-14.5); WBC 6.86 X 10*3/uL (4.50-10.00)
--- NOTE | 2024-10-02 08:55 | P.PN ---
Subjective Progress Note Date: 10/02/24 Patient codey stable. He has had no significant flatus. On exam vital signs appear stable. Abdomen is soft nontender incisions clean dry intact. Status post low anterior section for diverticulitis. Patient will have his diet advanced once bowel function returns. Objective - Vital Signs Vital signs: Vital Signs Temp 98.1 F 10/02/24 07:44 Pulse 60 10/02/24 07:44 Resp 17 10/02/24 07:44 BP 154/87 10/02/24 07:44 Pulse Ox 98 10/02/24 07:44 FiO2 Intake & Output 10/01/24 10/02/24 10/02/24 18:59 06:59 18:59 Output Total 2500 Balance -2500 Output: Urine 2500 Other: Voiding Method Indwelling Catheter Toilet # Voids 3 1 - Labs CBC & Chem 7: 10/02/24 05:45 09/30/24 02:54 Labs: Abnormal Lab Results - Last 24 Hours (Table) 10/02/24 Range/Units 05:45 RBC 4.20 L (4.40-5.60) X 10*6/uL Hct 39.5 L (39.6-50.0) % MCH 32.1 H (27.0-32.0) pg
[2024-10-02 09:18] LABS: Anion Gap 9.30 mmol/L (4.00-12.00); BUN/Creat Ratio 8.12 Ratio (12.00-20.00); Blood Urea Nitrogen 6.5 mg/dL (9.0-27.0); Calcium 8.5 mg/dL (8.7-10.3); Carbon Dioxide 25.7 mmol/L (21.6-31.8); Chloride 107 mmol/L (96-109); Glucose 104 mg/dL (70-110); Magnesium 2.0 mg/dL (1.5-2.4); Potassium 3.7 mmol/L (3.5-5.5); Sodium 142 mmol/L (135-145)
--- NOTE | 2024-10-02 20:20 | P.PN ---
Subjective Progress Note Date: 10/02/24 - Reason for Consult Consult date: 09/29/24 Medical management, status post sigmoid resection - History of Present Illness This is a pleasant 54-year-old male who was admitted under surgery services status post lower anterior sigmoid resection. Patient follows with Dr. Londono in the outpatient setting with a past medical history of GERD, hypertension, diverticulitis, EtOH, current continued ongoing nicotine abuse, daily drinking, marijuana use. Labs reviewed from yesterday evening reveal a white count of 15.46 although prior to surgery was 8.20, hemoglobin 16.2, platelets 217, sodium 139 with a potassium of 4.2, BUN is 14 with a creatinine of 0.80, random glucose was 106. Patient is currently being started on clear liquid diet and also continued on D5.45 with potassium at 125 an hour. Will decrease the dose to 75 an hour as patient is also having some wheezing. Patient reports he does smoke about 1 pack of cigarettes daily and is refusing nicotine patch or gum. Patient also reports to drinking a few beers daily and denies any feelings of withdrawal. Will place as needed Ativan and recommend to monitor for any withdrawals closely. Patient does continue with indwelling Orellana catheter and has epidural pump which will be monitored by anesthesia and possibly removed tomorrow. Patient is currently sitting up in the chair and recommend incentive spirometer use at least 10 times every hour while awake. 09/30/2024 Patient is seen in follow-up today and reports no acute overnight issues. Patient did have some abdominal discomfort when getting up and position changes otherwise as reported as being managed. Patient does continue with epidural pain pump and discussing possibly discontinuing today or tomorrow. Patient continues with indwelling Orellana catheter and and will continue until patient denies any significant gas is having belching. Patient remains on clear liquids per surgery and is tolerating awaiting advancing diet. Encouraged increased activity as tolerated with frequent walking once pain pump is removed. Patient is a daily alcohol drinker does not appear to be actively withdrawing at this time. Will continue to monitor and have CIWA as needed 10/01/2024 Patient is seen in follow-up today reporting continued abdominal discomfort when moving and coughing although when sitting up reports to feeling improved. No reports of gas or bowel movement as of yet. Patient did have indwelling Orellana catheter removed and will likely have epidural pain pump removed as well with anesthesia. Encourage increase activity as tolerated with frequent walking and slowly advancing diet per general surgery. Full liquids ordered and would recommend discontinuing IV fluids. Follow-up on repeat labs and replace electrolytes per protocol. Patient does take lisinopril/hydrochlorothiazide in the outpatient setting and will add low-dose lisinopril, continue holding diuretics at this time. 10/02/2024 Patient is seen in follow-up today had indwelling Orellana catheter removed and is voiding also has been up multiple times walking and reports to feeling a lot of rumbling in the abdomen passing very minimal gas but feels he is going to have a bowel movement. Patient is tolerating liquid diet and general surgery considering advancing diet to regular. Patient is afebrile with no reports of chest pain or shortness of breath. Patient stable for discharge once cleared by general surgery and after having bowel activity. Review of systems: Constitutional: No reports of fatigue, fever, or chills Cardiovascular: No reports of chest pain or palpitations Respiratory: No reports of shortness of breath or cough GI: No reports of nausea, vomiting, or diarrhea, reports not passing gas and continues with some abdominal discomfort with position changes and movement but is improving, no bowel movement as of yet but feels he needs to go : No reports of dysuria or retention Neurovascular: No reports of weakness or numbness All medications have been reviewed The rest of the 14-point review of systems is negative. PHYSICAL EXAMINATION: GENERAL: The patient is alert and oriented x3, not in any acute distress. Well developed, well nourished. Obese HEENT: Pupils are round and equally reacting to light. EOMI. No scleral icterus. No conjunctival pallor. Normocephalic, atraumatic. No pharyngeal erythema. No thyromegaly. CARDIOVASCULAR: S1 and S2 muffled PULMONARY: Diminished breath sounds bilaterally with a few scattered expiratory wheezes noted at the bases. No crackles noted. ABDOMEN: Soft, tender, nondistended, active bowel sounds. No palpable organomegaly. MUSCULOSKELETAL: No joint swelling or deformity. EXTREMITIES: No cyanosis, clubbing, or pedal edema. NEUROLOGICAL: Gross neurological examination did not reveal any focal deficits. SKIN: No rashes. Assessment: Diverticulitis, status post lower anterior sigmoid resection Elevated white blood count, 15.46, likely reactive, improved and has normalized. History of GERD History of previous diverticulitis History of hypertension History of alcohol abuse and daily alcohol use, does not appear to be actively withdrawing Continued ongoing nicotine dependence THC use Obesity with a BMI of 32.4 GI prophylaxis DVT prophylaxis Full code Plan: Patient admitted under general surgery services status post lower anterior sigmoid resection with history of diverticulitis Fluids have been discontinued and patient is tolerating liquid diet being advanced per surgery Encourage increase activity as tolerated with sitting up in the chair more frequently. Indwelling Orellana catheter was removed along with epidural and art ent is voiding, passing some gas and feels he needs to have a bowel movement Encourage incentive spirometer use at least 10 times every hour while awake Resume appropriate home medications and will resume low-dose lisinopril, continue to hold hydrochlorothiazide at this time A.m. labs pending Patient does smoke about 1 pack of cigarettes per day and is refusing nicotine patch or gum at this time. Patient also admits to drinking a few beers daily and denies any feelings of withdrawal. Possible discharge planning per general surgery in 24 hours. Advance to regular and monitor overnight. Patient is medically stable once cleared by general surgery Thank you kindly for this consultation. We will continue to follow with general surgery during hospitalization The impression and plan of care has been dictated by Lyssa Chandler, Nurse Practitioner as directed. Dr. Shanna MD I have performed a history and examination and MDM of this patient, discussed the same with the dictator, and agree with the dictator's assessment and plan as written ,documented as a scribe. Based on total visit time, I have performed more than 50% of the visit. Objective - Vital Signs Vital signs: Vital Signs Temp 98 F 10/02/24 00:55 Pulse 62 10/02/24 00:55 Resp 17 10/02/24 00:55 BP 149/89 10/02/24 00:55 Pulse Ox 98 10/02/24 00:55 FiO2 Intake & Output 10/01/24 10/01/24 10/02/24 06:59 18:59 06:59 Intake Total 2110 Output Total 1650 2500 Balance 460 -2500 Intake: Intake, IV Titration 250 Amount Ropivacaine 250 mg 250 Hydromorphone (Pf) 5 mg In Sodium Chloride 0.9% 200 ml @ Per Protocol EPIDURAL .Q0M PRN Rx#: [id number] Oral 1860 Output: Urine 1650 2500 Other: Voiding Method Indwelling Catheter Indwelling Catheter Toilet # Voids 3 - Labs CBC & Chem 7: 10/02/24 05:45 10/02/24 05:45
[2024-10-03 02:42] VITALS: PULSE 61
[2024-10-03 08:22] VITALS: BP 142/87; RESP 16; TEMP 98
--- NOTE | 2024-10-03 12:42 | P.DS ---
Providers Date of admission: 09/28/24 09:43 Expected date of discharge: 10/03/24 Attending physician: Man Thompson Consults: 09/28/24 13:05 Consult Physician Routine Consulting Provider: Coreen Juarez Consult Reason/Comments: Medical management Do you want consulting provider notified?: Yes Primary care physician: Stated None Hospital Course: 54-year-old male seen postop after recent low anterior resection. Patient doing well today. He is tolerating his regular diet. He did have bowel movements yesterday and again this morning. Quite anxious for discharge. Will plan discharge at this time. Patient has his Yenny dressing in place. Keep in place until cleared for removal by Dr. Thompson. Follow-up with Dr. Thompson 1 week. Plan - Discharge Summary Discharge Rx Participant: Yes New Discharge Prescriptions: New HYDROcodone/APAP 5-325MG [[place] 5-325] 1 tab PO Q6HR PRN #10 tab PRN Reason: Pain Continue Lisinopril-Hctz 20-25 mg [Zestoretic 20-25] 1 tab PO DAILY Discharge Medication List Lisinopril-Hctz 20-25 mg [Zestoretic 20-25] 1 tab PO DAILY 07/20/24 [History] HYDROcodone/APAP 5-325MG [[place] 5-325] 1 tab PO Q6HR PRN #10 tab 10/02/24 [Rx] Follow up Appointment(s)/Referral(s): Etsefany Londono PAC [REFERRING] - 1-2 Days Man Thompson MD [STAFF PHYSICIAN] - 1 Week
--- NOTE | 2024-10-05 16:45 | P.PN ---
Subjective Progress Note Date: 10/03/24 This is a pleasant 54-year-old male who was admitted under surgery services status post lower anterior sigmoid resection. Patient follows with Dr. Londono in the outpatient setting with a past medical history of GERD, hypertension, diverticulitis, EtOH, current continued ongoing nicotine abuse, daily drinking, marijuana use. Labs reviewed from yesterday evening reveal a white count of 15.46 although prior to surgery was 8.20, hemoglobin 16.2, platelets 217, sodium 139 with a potassium of 4.2, BUN is 14 with a creatinine of 0.80, random glucose was 106. Patient is currently being started on clear liquid diet and also continued on D5.45 with potassium at 125 an hour. Will decrease the dose to 75 an hour as patient is also having some wheezing. Patient reports he does smoke about 1 pack of cigarettes daily and is refusing nicotine patch or gum. Patient also reports to drinking a few beers daily and denies any feelings of withdrawal. Will place as needed Ativan and recommend to monitor for any withdrawals closely. Patient does continue with indwelling Orellana catheter and has epidural pump which will be monitored by anesthesia and possibly removed tomorrow. Patient is currently sitting up in the chair and recommend incentive spirometer use at least 10 times every hour while awake. 09/30/2024 Patient is seen in follow-up today and reports no acute overnight issues. Patient did have some abdominal discomfort when getting up and position changes otherwise as reported as being managed. Patient does continue with epidural pain pump and discussing possibly discontinuing today or tomorrow. Patient continues with indwelling Orellana catheter and and will continue until patient denies any significant gas is having belching. Patient remains on clear liquids per surgery and is tolerating awaiting advancing diet. Encouraged increased activity as tolerated with frequent walking once pain pump is removed. Patient is a daily alcohol drinker does not appear to be actively withdrawing at this time. Will continue to monitor and have CIWA as needed 10/01/2024 Patient is seen in follow-up today reporting continued abdominal discomfort when moving and coughing although when sitting up reports to feeling improved. No reports of gas or bowel movement as of yet. Patient did have indwelling Orellana catheter removed and will likely have epidural pain pump removed as well with anesthesia. Encourage increase activity as tolerated with frequent walking and slowly advancing diet per general surgery. Full liquids ordered and would recommend discontinuing IV fluids. Follow-up on repeat labs and replace electrolytes per protocol. Patient does take lisinopril/hydrochlorothiazide in the outpatient setting and will add low-dose lisinopril, continue holding diuretics at this time. 10/02/2024 Patient is seen in follow-up today had indwelling Orellana catheter removed and is voiding also has been up multiple times walking and reports to feeling a lot of rumbling in the abdomen passing very minimal gas but feels he is going to have a bowel movement. Patient is tolerating liquid diet and general surgery considering advancing diet to regular. Patient is afebrile with no reports of chest pain or shortness of breath. Patient stable for discharge once cleared by general surgery and after having bowel activity. 10/03/2024 Patient is evaluated today in follow up on the medical floor. He has been voiding. He has had a bowel movement. He has tolerated regular diet. He has been up ambulating in the hallways. General surgery has cleared the patient for discharge home. Discussed continued on bowel regimen while using narcotics for pain. Patient understanding of this. Additionally his blood pressure is controlled and will continue on zestoretic on discharge. Discussed smoking cessation. Denied need for nicotine patch. Review of systems: Constitutional: No reports of fatigue, fever, or chills Cardiovascular: No reports of chest pain or palpitations Respiratory: No reports of shortness of breath or cough GI: No reports of nausea, vomiting, or diarrhea, reports not passing gas and continues with some abdominal discomfort with position changes and movement but is improving, no bowel movement as of yet but feels he needs to go : No reports of dysuria or retention Neurovascular: No reports of weakness or numbness All medications have been reviewed The rest of the 14-point review of systems is negative. PHYSICAL EXAMINATION: GENERAL: The patient is alert and oriented x3, not in any acute distress. Well developed, well nourished. Obese HEENT: Pupils are round and equally reacting to light. EOMI. No scleral icterus. No conjunctival pallor. Normocephalic, atraumatic. No pharyngeal erythema. No thyromegaly. CARDIOVASCULAR: S1 and S2 muffled PULMONARY: Diminished breath sounds bilaterally with a few scattered expiratory wheezes noted at the bases. No crackles noted. ABDOMEN: Soft, tender, nondistended, active bowel sounds. No palpable organomegaly. MUSCULOSKELETAL: No joint swelling or deformity. EXTREMITIES: No cyanosis, clubbing, or pedal edema. NEUROLOGICAL: Gross neurological examination did not reveal any focal deficits. SKIN: No rashes. Assessment: Diverticulitis, status post lower anterior sigmoid resection Elevated white blood count, 15.46, likely reactive, improved and has normalized. History of GERD History of previous diverticulitis History of hypertension History of alcohol abuse and daily alcohol use, does not appear to be actively withdrawing Continued ongoing nicotine dependence THC use Obesity with a BMI of 32.4 GI prophylaxis DVT prophylaxis Full code Plan: Patient admitted under general surgery services status post lower anterior sigmoid resection with history of diverticulitis Fluids have been discontinued and patient is tolerating liquid diet being advanced per surgery Encourage increase activity as tolerated with sitting up in the chair more frequently. Indwelling Orellana catheter was removed along with epidural and patient is voiding, passing some gas and feels he needs to have a bowel movement Encourage incentive spirometer use at least 10 times every hour while awake Resume appropriate home medications and will resume low-dose lisinopril, continue to hold hydrochlorothiazide at this time A.m. labs pending Patient does smoke about 1 pack of cigarettes per day and is refusing nicotine patch or gum at this time. Patient also admits to drinking a few beers daily and denies any feelings of withdrawal. Possible discharge planning per general surgery in 24 hours. Advance to regular and monitor overnight. Patient is medically stable once cleared by general surgery Thank you kindly for this consultation. We will continue to follow with general surgery during hospitalization The impression and plan of care has been dictated by Sofia Steven, Nurse Practitioner as directed. Dr. Shanna MD I have performed a history and examination and MDM of this patient, discussed the same with the dictator, and agree with the dictator's assessment and plan as written ,documented as a scribe. Based on total visit time, I have performed more than 50% of the visit. Objective - Vital Signs Vital signs: Vital Signs Temp 98 F 10/03/24 06:58 Pulse 61 10/03/24 07:50 Resp 16 10/03/24 07:50 BP 142/87 10/03/24 06:58 Pulse Ox 99 10/03/24 06:58 FiO2 - Labs CBC & Chem 7: 10/02/24 05:45 10/02/24 05:45 Assessment and Plan Time with Patient: Less than 30
== END 2024-10-03 14:18 | disposition home or self-care (01) | DRG 334 ==
LOC: 2ORMAIN 09:43 → 4SSUR 18:38
PROVIDERS: ADMIT Surgery; ATTEND Surgery
PROC: 0DBP0ZZ Excision of Rectum, Open Approach (ICD-10-PCS; principal; 2024-09-28 14:15)
DX: K57.32 Diverticulitis of large intestine without perforation or abscess without bleeding (principal); E66.9 Obesity, unspecified; I10 Essential (primary) hypertension; Z68.32 Body mass index [BMI] 32.0-32.9, adult; F17.210 Nicotine dependence, cigarettes, uncomplicated; Z71.6 Tobacco abuse counseling; Z79.899 Other long term (current) drug therapy
CPT/HCPCS: 80048; 83735; 85025; 85610; 86850; 86900; 86901; 87086; 88307